=== PATIENT | female | born 1945 | race Caucasian/White ===

== ENCOUNTER 2017-04-05 19:57 | Emergency (ER) | payer MEDICARE, OTHER ==
[~2017-04-05] VITALS: Ht 162.6 cm; Wt 93.0 kg
[~2017-04-05 19:57] MED LIST: DIVALPROEX SOD250 MG PO; HUMALOG100 UNIT/2 SUB-Q; LANTUS SOL100 UNIT/1 SUB-Q; LOSARTAN-HCTZ1 EAC2 PO; METFORMIN HCL1000 MG PO; PAROXETINE HCL20 MG PO; SIMVASTATIN80 MG PO
[2017-04-05] MEDS ORDERED: NOVOLIN N100 UNIT/1 SUB-Q (23:59)
--- OUTSIDE RECORDS SUMMARY | 2017-04-06 01:00 | XMS | Clinical Summary ---
Demographics + + + | Address | [address] | | | [place] [address] | + + + | Home Phone | | + + + | Preferred Language | Unknown | + + + | Marital Status | Single | + + + | Catholic Affiliation | CAT | + + + | Race | White | + + + | Ethnic Group | Not or | + + + Author + + + | Author | [facility] | + + + | Organization | [facility] | + + + | Address | Unknown | + + + | Phone | Unavailable | + + + Support +------+ +---------+ + | Name | Relationship | Address | Phone | +------+ +---------+ + ECON | Unknown | | +------+ +---------+ + Care Team Providers + +------+ + | Care Community Outreach Worker Name | Role | Phone | + +------+ + PP | Unavailable | + +------+ + Source Comments LITA is fully live on both [facility] and [facility] Allergies + + + + + + | Active Allergy | Reactions | Severity | Noted | Comments | | | | | Date | | + + + + + + | Adhesive Tape | | | 05/08/19 | | | | | | 07 | | + + + + + + Current Medications + + +-------+---------+------+------+-------+ | Prescription | Sig. | Disp. | Refills | Star | End | Statu | | | | | | t | Date | s | | | | | | Date | | | + + +-------+---------+------+------+-------+ | ACTOS 45 MG TAB | take 1 tablet (45mg) | | | | | Activ | | | by oral route once | | | | | e | | | daily | | | | | | + + +-------+---------+------+------+-------+ | CLONAZEPAM 0.5 MG | take 1 tablet | | | | | Activ | | TAB | (0.5mg) by oral | | | | | e | | | route 3 times per | | | | | | | | day | | | | | | + + +-------+---------+------+------+-------+ | METFORMIN 1,000 MG | take 1 tablet | | | | | Activ | | TAB | (1,000mg) by oral | | | | | e | | | route 2 times per | | | | | | | | day with morning and | | | | | | | | evening meals | | | | | | + + +-------+---------+------+------+-------+ | DEPAKOTE 250 MG | take 1 tablet | | | | | Activ | | TAB | (250mg) by oral | | | | | e | | | route 2 times per | | | | | | | | day | | | | | | + + +-------+---------+------+------+-------+ | LIPITOR 40 MG TAB | take 1 tablet (40mg) | | | | | Activ | | | by oral route once | | | | | e | | | daily | | | | | | + + +-------+---------+------+------+-------+ | BENICAR HCT 40 | take 1 tablet by | | | | | Activ | | MG-12.5 MG TAB | oral route once | | | | | e | | | daily | | | | | | + + +-------+---------+------+------+-------+ | CENTRUM OR | qd | | | | | Activ | | | | | | | | e | + + +-------+---------+------+------+-------+ | VITAMIN C 1,000 MG | 2x daily | | | | | Activ | | TAB | | | | | | e | + + +-------+---------+------+------+-------+ | VITAMIN E 400 UNIT | 2x daily | | | | | Activ | | CAP | | | | | | e | + + +-------+---------+------+------+-------+ | VITAMIN B-12 500 | 2x daily | | | | | Activ | | MCG TAB | | | | | | e | + + +-------+---------+------+------+-------+ | FOLIC ACID 400 MCG | 2x daily | | | | | Activ | | TAB | | | | | | e | + + +-------+---------+------+------+-------+ | FISH OIL 1,000 | 2x daily | | | | | Activ | | MG-340 MG CAP | | | | | | e | + + +-------+---------+------+------+-------+ | | qd | | | | | Activ | | [id number] | | | | | | e | | LAG-HYALURONIC ACID | | | | | | | | 375 MG-300 MG-50 | | | | | | | | MG-2 MG CAP | | | | | | | + + +-------+---------+------+------+-------+ | CALCIUM 600 OR | 2 tabs per day | | | | | Activ | | | | | | | | e | + + +-------+---------+------+------+-------+ | IBUPROFEN 200 MG | 3 po in the a.m. | | | | | Activ | | CAP | | | | | | e | + + +-------+---------+------+------+-------+ Active Problems + + + | Problem | Noted Date | + + + | Open wound of scalp without complication | 05/24/2006 | + + + Social History + +-------+ +--------+------+ | Tobacco Use | Types | Packs/Day | Years | Date | | | | | Used | | + +-------+ +--------+------+ | Never Assessed | | | | | + +-------+ +--------+------+ + + + | Sex Assigned at | Date Recorded | | | | + + + | Not on file | | + + + Plan of Treatment + + + + + | Health Maintenance | Due Date | Last Done | Comments | + + + + + | INFLUENZA VACCINE | | | | | (FLU SHOT) | 7 | | | + + + + + Results Not on filefrom Last 3 Months"
[2017-04-06] MEDS ORDERED: CIPRO500 MG PO (07:39)
[2017-04-06] MEDS ORDERED: PROAIR RESPICL90 MCG INH (07:54)
--- NOTE | 2017-04-07 22:39 | EKG ---
[facility] [address] [facility] [place] [address] Signed Normal sinus rhythm Indeterminate axis Right bundle branch block Abnormal ECG No previous ECGs available Confirmed by ZO QUEEN MD ([id number]) on 04/07/2017 10:39:47 PM Electronically Signed By: ZO QUEEN MD 04/07/17 2239 PATIENT NAME: HOLLAND EDWARDS Electrocardiogram DATE OF : 43 PHYSICIAN: ZO QUEEN MD REPORT #: [id number] REPORT IS CONFIDENTIAL AND NOT TO BE RELEASED WITHOUT AUTHORIZATION
== END 2017-04-06 08:25 | disposition home or self-care (01) ==
LOC: ED 19:57
DX: N39.0 Urinary tract infection, site not specified (principal); J98.01 Acute bronchospasm; R53.1 Weakness; E11.9 Type 2 diabetes mellitus without complications; Z87.891 Personal history of nicotine dependence; Z88.8 Allergy status to other drugs, medicaments and biological substances; Z79.899 Other long term (current) drug therapy; Z79.84 Long term (current) use of oral hypoglycemic drugs
CPT/HCPCS: 71046; 71260; 80053; 81001; 83605; 83880; 84484; 85025; 87040; 87502; 93005; 93010; 96365; 96375; 99284; J0295; J1100; J7040; Q9967

== ENCOUNTER 2020-07-16 20:37 | Observation (INO) | payer MEDICARE, OTHER ==
[~2020-07-16] VITALS: Ht 162.6 cm; Wt 97.2 kg
[~2020-07-16 20:37] MED LIST changes: +ASPIRIN81 MG PO; +CIPRO500 MG PO; +ESCITALOPRAM OX10 MG PO; +FREESTYLE TEST1 EACH MISC; +HUMALOG100 UNITS/ SUB-Q; +INSULIN SYRING1 EA47 MISC; +METFORMIN HCL1000 M1 PO; +NOVOLIN N100 UNIT/1 SUB-Q; +POTASSIUM GLUCO90 MG PO; +PROAIR RESPICL90 MCG INH; +SIMVASTATIN40 MG PO; +SYNTHROID88 MCG PO; +TURMERIC500 M2 PO; +VITAMIN B-121000 MCG PO; +VITAMIN C500 M1 PO; +VITAMIN D325 MCG PO
--- NOTE | 2020-07-16 23:30 | NUR ---
PT ARRIVED TO [facility] AT 2302 VIA STRETCHER ACCOMPANIED BY HER DAUGHTER. VS TAKEN AND ENTERED. PT DENIES ANY SX AT THIS TIME. PT IS ORIENTED TO THE ROOM AND CALL LIGHT. COMPLETED ADMISSION HX SHE DENIES NEEDS AT THIS TIME. CALL LIGHT IS CLOSE. DAUGHTER IS IN THE ROOM.
--- NOTE | 2020-07-17 00:30 | NUR ---
ASSESSMENT COMPLETE, NO SCHEDULED MEDS AT THIS TIME. pt A/OX4, VSS. CPOX IN PLACE ALONG WITH TELE#5, SINUS RHYTHM, HR 70'S. pt DENIES CHEST PAIN AND SOB. PUPILS ROUND AND REACTIVE TO LIGHT, DENIES VISION CHANGES. EQUAL STRENGTH NOTED TO BILATERAL UPPER EXTREMITIES AND BILATERAL LOWER EXTREMITIES, NO DRIFT NOTED IN EXTREMITIES X4. SPEECH CLEAR, TOLERATING SANDWICH BOX AT THIS TIME. DENIES NAUSEA, REPORTS THAT SHE CAN FEEL DIZZY/SWEATY WHEN BS IS LOW, pt INSTRUCTED TO CALL SCALLOP CUTTER MACHINE IF SHE HAS CONCERNS REGARDING BS, pt VERBALIZED UNDERSTANDING. pt UP SBA TO VOID, RETURNED TO BED. MRI SCREENING FORM ASLO COMPLETED AT THIS TIME. NO FURTHER NEEDS, DAUGHTER REMAINS IN ROOM. CALL LIGHT IN REACH.
--- NOTE | 2020-07-17 04:41 | NUR ---
ASSESSMENT COMPLETE, VSS. pt A/OX4. NO CHANGES FROM PREVIOUS ASSESSMENT, WILL CONT. TO MONITOR. pt UP TO VOID SBA AND RETURNED TO BED. NO FURTHER NEEDS, CALL LIGHT IN REACH.
--- NOTE | 2020-07-17 05:44 | NUR ---
pt ARRIVED TO THE FLOOR THIS SHIFT D/T POSSIBLE CVA. NO DEFICITS NOTED AT THIS TIME, pt A/OX4 AND CALLS APPROPRIATELY. VSS, TELE#[address], NSR. 05/13 REPORTED HEADACHE RESOLVED W/O MEDICAL INTERVENTION. REGULAR DIET, TOLERATING WELL. NO NAUSEA REPORTED. IV SITE WNL, FIELD START. SALINE LOCKED. MRI SCREENING FORM COMPLETE.
--- NOTE | 2020-07-17 08:37 | NUR ---
PATIENT SITTING AT SIE OF BED FOR BREAKFAST. FACE AND HANDS WASHED, FRESH ICE WATER PROVIDED.
--- NOTE | 2020-07-17 09:00 | NUR ---
REPORT RECEIVED FROM NIGHT RN AND PT. CARE RESUMED. PT. IN THE CHAIR, ALERT, ORIENTED AND PLEASANT. SHE REPORTS A MILD HEADACHE THAT IS TOLERABLE AND STATES SHE NORMALLY TAKES ENTERIC COATED ASPIRIN AT HOME FOR HEADACHE. PT. EDUCATED ON TIA AND STROKE PREVENTION. PT. RECEPTIVE AND ASKED GOOD QUESTIONS. NEURO ASSESSMENT SHOWS NO DEFICITS. LUNGS CLEAR. IV SITE WNL AND FLUSHES. DISCUSSED POC. PT LEFT RESTING IN CHAIR WITH CALL LIGHT IN REACH.
[2020-07-17] MEDS ORDERED: ADULT ASPIRIN R81 MG PO (11:01)
[2020-07-17] MEDS ORDERED: FREESTYLE TEST1 EACH MISC (11:02)
[2020-07-17] MEDS ORDERED: ESCITALOPRAM OX20 MG PO (11:03)
[2020-07-17] MEDS ORDERED: NOVOLIN R100 UNIT/1 INJ (11:04)
[2020-07-17] MEDS ORDERED: MELATONIN10 M2 PO (11:08)
--- NOTE | 2020-07-17 11:08 | NUR ---
MED REC COMPLETE
--- NOTE | 2020-07-17 12:30 | NUR ---
PATIENT ASLEEP IN THE CHAIR. AWAKENED EASILY AND ORIENTED. NEURO. ASSESSMENT SHOWS NO DEFICITS. LUNGS CLEAR AND IV SITE WNL. IMAGING ARRIVED TO TAKE PT. TO MRI.
--- NOTE | 2020-07-17 13:18 | EKG ---
[facility] [address] [facility] [place] [address] Signed Sinus rhythm with occasional premature ventricular complexes Left axis deviation Right bundle branch block Abnormal ECG When compared with ECG of 30-DEC-2019 18:53, premature ventricular complexes are now present Questionable change in QRS axis Confirmed by CULLEN BANKS DO ([id number]) on 07/17/2020 1:18:39 PM Electronically Signed By: CULLEN BANKS DO 07/17/20 1318 PATIENT NAME: HOLLAND EDWARDS JULIET Electrocardiogram DATE OF : 43 PHYSICIAN: CULLEN BANKS DO REPORT #: [id number] REPORT IS CONFIDENTIAL AND NOT TO BE RELEASED WITHOUT AUTHORIZATION
--- NOTE | 2020-07-17 14:32 | NUR ---
PT LIVES IN A ONE STORY HOUSE WITH ONE STEP WITH HER EX- WHO HAS DEMENTIA. SHE IS HIS PRIMARY CAREGIVER. THEY USE [employer] FOR MEALS ON WHEELS. IT WAS DISSCUSSED WITH PT THAT SHE LOOKS INTO GETTING A CAREGIVER THROUGH [employer] FOR HER EX-, AND GETTING A LIFEALERT FOR THE PT.
--- NOTE | 2020-07-17 15:42 | NUR ---
PATIENT AWAKE IN CHAIR, DAUGHTER IN CHAIR. VITALS AND I&OS CHARTED. GARBAGE EMPTIED. CALL LIGHT IN REACH, NO OTHER NEEDS AT THIS TIME
--- NOTE | 2020-07-17 18:19 | NUR ---
PT. HERE FOR CHF EXACERBATION. PER DANIEL, CANNOT RETURN TO [facility] EARLIER THAN MONDAY DUE TO STAFFING. O2 SAT HAS STAYED ABOVE 90% ON R.A. FOR THE SHIFT. UO IS QS FOR THE SHIFT AND YELLOW WITH SEDIMENT. IV FLUSHES WELL. PT. VERY WEAK AND WAS NOT ABLE TO PIVOT TRANSFER TODAY. +2 PITTING EDEMA STILL PRESENT BLE. PT. CONFUSED AND [place] AT BASELINE. SWALLOW STUDY COMPLETED. SHE IS ON A PUREED AND THICKENED LIQUID DIET. Q2H TURNS. REDNESS IN DANGELO AND LABIA AREA. BARRIER CREAM APPLIED AND ATTENDS IN PLACE.
--- NOTE | 2020-07-17 18:33 | NUR ---
PT. ADMITTED FOR TIA OBSERVATION. AWAITING MRI RESULTS TO DETERMINE DISCHARGE. ACCUCHECKS AND INSULIN NOW ORDERED. VITALS STABLE AND NO NEURO DEFICITS NOTED. PT. INDEPENDENT IN THE ROOM AND ON TELE 5.
--- NOTE | 2020-07-17 19:10 | NUR ---
SHIFT REPORT RECEIVED FROM DAYSHIFT RN RAÚL AT BEDSIDE. pt AWAKE AND RESTING IN CHAIR, DAUGHTER ALSO IN ROOM. TELE#[address], NSR, HR 70'S. NO NEEDS AT THIS TIME, CALL LIGHT IN REACH.
--- NOTE | 2020-07-17 22:25 | NUR ---
ASSESSMENT COMPLETE, VSS. TELE #[address], SINUS RHYTHM, HR 70'S. ACCUCHECK RESULT OF 193, INSULIN LISPRO SS AND SCHEDULED INSULIN NPH GIVEN, SEE EMAR. pt INSTRUCTED TO CALL IF SHE EXPERIENCES S/SX OF LOW BS, pt VERBALIZED UNDERSTANDING. NEURO ASSESSMENT WNL, EQUAL STRENGTH TO QING AND FELISA. pt INDEPENDENT IN ROOM, DAUGHTER ALSO IN ROOM. NO FURTHER NEEDS, CALL LIGHT IN REACH.
--- NOTE | 2020-07-18 00:33 | NUR ---
TELE#[address], SINUS RHYTHM, HR 60'S. NO DISTRESS NOTED. EYES CLOSED, RR EVEN AND UNLABORED, CALL LIGHT IN REACH.
--- NOTE | 2020-07-18 01:21 | NUR ---
IN ROOM TO REPLACE TELE BATTERY, pt AWOKE EASILY TO VOICE. NO NEEDS VERBALIZED AT THIS TIME, DAUGHTER REMAINS IN ROOM. CALL LIGHT IN REACH.
--- NOTE | 2020-07-18 03:23 | NUR ---
HAYLIE#[address], SINUS RHYTHM, HR 65. ACCUCHECK RESULT IN 130'S. pt AWOKE TO VOICE. DENIED PAIN AND NEEDS. INDEPENDENT IN ROOM, DAUGHTER ALSO IN ROOM. HAT EMPTIED, URINE LIGHT YELLOW IN COLOR. NO NEEDS VERBALIZED, CALL LIGHT IN REACH.
--- NOTE | 2020-07-18 05:31 | NUR ---
VSS AND I&O'S COMPLETE. FRESH WATER PROVIDED, NO FURTHER NEEDS, CALL LIGHT IN REACH.
[2020-07-18] MEDS ORDERED: CLOPIDOGREL75 MG PO ×2 (08:51→18:29)
--- NOTE | 2020-07-18 09:52 | NUR ---
PT IN RM WITH PHARMACY RENAE AND THIS RN TO DISCUSS DC MEDS, SIDE EFFECTS, NEW MEDS EDUCATION GIVEN, VERBAL AND WRITTEN. DC INST. TO PT WELL.
== END 2020-07-18 10:00 | disposition home or self-care (01) ==
LOC: ED 20:37 → MS 20:39
PROVIDERS: ADMIT Student in an Organized Health Care Education/Training Program; ATTEND Student in an Organized Health Care Education/Training Program
DX: G45.9 Transient cerebral ischemic attack, unspecified (principal); I10 Essential (primary) hypertension; E78.5 Hyperlipidemia, unspecified; E11.9 Type 2 diabetes mellitus without complications; E03.9 Hypothyroidism, unspecified; Z79.82 Long term (current) use of aspirin; Z20.822 Contact with and (suspected) exposure to COVID-19
CPT/HCPCS: 70450; 70496; 70498; 70551; 71045; 80053; 85025; 85610; 85730; 93005; 93010; C9803; J1815; Q9967; U0003

== ENCOUNTER 2020-12-27 18:05 | Emergency (ER) | payer MEDICARE, OTHER ==
[~2020-12-27] VITALS: Ht 162.6 cm; Wt 97.1 kg
[~2020-12-27 18:05] MED LIST changes: +ADULT ASPIRIN R81 MG PO; +CLOPIDOGREL75 MG PO; +ESCITALOPRAM OX20 MG PO; +MELATONIN10 M2 PO; +NOVOLIN R100 UNIT/1 INJ
[2020-12-27] MEDS ORDERED: PLAVIX75 MG PO (20:09)
--- NOTE | 2020-12-28 20:09 | EKG ---
[facility] [address] [facility] [place], [place] [address] Signed Sinus rhythm with sinus arrhythmia with 1st degree AV block with occasional premature ventricular complexes Left axis deviation Right bundle branch block Inferior infarct , age undetermined Abnormal ECG When compared with ECG of 16-JUL-2020 20:59, No significant change was found Confirmed by CULLEN BANKS DO ([id number]) on 12/28/2020 8:09:17 PM Electronically Signed By: CULLEN BANKS DO 12/28/202008 PATIENT NAME: HOLLAND EDWARDS JULIET Electrocardiogram DATE OF : 43 PHYSICIAN: CULLEN BANKS DO REPORT #: [id number] REPORT IS CONFIDENTIAL AND NOT TO BE RELEASED WITHOUT AUTHORIZATION
== END 2020-12-27 20:53 | disposition home or self-care (01) ==
LOC: ED 18:05
DX: G45.9 Transient cerebral ischemic attack, unspecified (principal); E03.9 Hypothyroidism, unspecified; E11.9 Type 2 diabetes mellitus without complications; Z87.891 Personal history of nicotine dependence; Z79.82 Long term (current) use of aspirin; Z79.4 Long term (current) use of insulin; Z88.7 Allergy status to serum and vaccine; Z79.899 Other long term (current) drug therapy
CPT/HCPCS: 70450; 70496; 70498; 70551; 71045; 80053; 85025; 85610; 85730; 93005; 93010; 96374; 99285-25

== ENCOUNTER 2020-12-28 06:50 | Emergency (ER) | payer MEDICARE, OTHER ==
[~2020-12-28] VITALS: Ht 162.6 cm; Wt 97.1 kg
[~2020-12-28 06:50] MED LIST changes: +PLAVIX75 MG PO
--- OUTSIDE RECORDS SUMMARY | 2020-12-28 07:00 | XMS ---
PreManage Notification: HOLLAND EDWARDS Security Assistant Account Manager Events No recent Security Events currently on file CRITERIA MET - [facility] - 2 Visits in 30 Days CARE PROVIDERS There are no care providers on record at this time. Mandy has no Care Guidelines for this patient. [facility] T[facility] NOTE: Visits indicate total known visits. ED/C VISIT TRACKING (12 MO.) 12/28/2020 06:51 [facility] TYPE: Emergency COMPLAINT: - POSS STROKE 12/27/2020 18:06 [facility] TYPE: Emergency COMPLAINT: - POSSIBLE STROKE 07/16/2020 20:38 [facility] TYPE: Emergency COMPLAINT: - STROKE SYMPTOMS 12/30/2019 17:33 [facility] TYPE: Emergency COMPLAINT: - STROKE SYMPTOMS INPATIENT VISIT TRACKING (12 MO.) 07/16/2020 20:39 [facility] TYPE: Observation COMPLAINT: - TIA DIAGNOSES: - Hyperlipidemia, unspecified - Essential (primary) hypertension - Transient cerebral ischemic attack, unspecified - nursing home (current) use of aspirin - Hypothyroidism, unspecified - Type 2 diabetes mellitus without complications 12/30/2019 17:34 [facility] [place] TYPE: Observation COMPLAINT: - CVA DIAGNOSES: - Unspecified mood [affective] disorder - Type 2 diabetes mellitus with hyperglycemia - 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
== END 2020-12-28 10:26 | disposition home or self-care (01) ==
LOC: ED 06:50
DX: Z86.73 Personal history of transient ischemic attack (TIA), and cerebral infarction without residual deficits (principal); E11.9 Type 2 diabetes mellitus without complications; E03.9 Hypothyroidism, unspecified; Z87.891 Personal history of nicotine dependence; Z88.7 Allergy status to serum and vaccine; Z79.899 Other long term (current) drug therapy
CPT/HCPCS: 70551; 99282

== ENCOUNTER 2021-07-04 16:57 | Emergency (ER) | payer MEDICARE, OTHER ==
[~2021-07-04] VITALS: Ht 162.6 cm; Wt 97.1 kg
[2021-07-04] MEDS ORDERED: JANUVIA100 MG PO (17:21)
[2021-07-04] MEDS ORDERED: CHROMIUM PIC1000 MCG PO (17:21)
[2021-07-04] MEDS ORDERED: NIACIN ER500 MG PO (17:22)
--- NOTE | 2021-07-05 07:17 | EKG ---
[facility] [address] [facility] [place] [address] Signed Sinus rhythm with frequent premature ventricular complexes Left axis deviation Right bundle branch block Abnormal ECG When compared with ECG of 27-DEC-2020 18:30, No significant change was found Confirmed by JONI GONSALES MD ([id number]) on 07/05/2021 7:17:09 AM Electronically Signed By: JONI GONSALES MD 07/05/21 0717 PATIENT NAME: HOLLAND EDWARDS Electrocardiogram DATE OF : 43 PHYSICIAN: JONI GONSALES MD REPORT #: [id number] REPORT IS CONFIDENTIAL AND NOT TO BE RELEASED WITHOUT AUTHORIZATION
== END 2021-07-04 19:15 | disposition home or self-care (01) ==
LOC: ED 16:57
DX: E11.649 Type 2 diabetes mellitus with hypoglycemia without coma (principal); Z86.73 Personal history of transient ischemic attack (TIA), and cerebral infarction without residual deficits; E03.9 Hypothyroidism, unspecified; Z87.891 Personal history of nicotine dependence; Z88.7 Allergy status to serum and vaccine; Z79.899 Other long term (current) drug therapy; Z79.84 Long term (current) use of oral hypoglycemic drugs; Z79.82 Long term (current) use of aspirin; Z79.4 Long term (current) use of insulin
CPT/HCPCS: 36415; 80053; 81001; 84484; 85025; 93005; 93010; 99285-25

== ENCOUNTER 2021-11-13 16:38 | Inpatient (IN) | payer MEDICARE ==
[~2021-11-13] VITALS: Ht 162.6 cm; Wt 83.1 kg
[~2021-11-13 16:38] MED LIST changes: -ADULT ASPIRIN R81 MG PO; +ASPIRIN EC325 MG PO; +CHROMIUM PIC1000 MCG PO; +JANUVIA100 MG PO; +MACROBID 100 M100 MG PO; +NIACIN ER500 MG PO
[2021-11-13] MEDS ORDERED: LOSARTAN-HCTZ1 EACH PO (17:23)
[2021-11-13] MEDS ORDERED: LEVOTHYROXINE88 MCG PO (17:23)
[2021-11-13] MEDS ORDERED: JANUVIA100 MG PO (17:24)
--- NOTE | 2021-11-13 21:34 | NUR ---
PATIENT ARRIVED ABOUT 2029 WITH HOUSE FLOAT. PATIENT ALERT BUT ORIENTED TO SELF ONLY. PATIENT UNABLE TO FOLLOW INSTRUCTIONS. MOVED PATIENT 2PA TO THE BED. PATIENT IS VERY ANXIOUS AND COMBATIVE WITH ALL CARES, ESPECIALLY THE BP CUFF. PATIENT REORIENTED AND VERBALLY COMFORTED CONTINUOUSLY BY STAFF. PATIENT UP TO THE BSC. PATIENT IS IMPULSIVE AND NOT FOLLOWING SAFETY INSTRUCTIONS. APPEARS STEADY ON HER FEET. VOIDED LARGE DILUTE AMOUNT. RETURNED TO BED. PASSED BEDSIDE SWALLOW EVAL. TOOK PO MEDS WITHOUT CONCERN. OTHER SCHEDULED MEDS PROVIDED PER ORDER. PATIENT REQUIRES CLOSE MONITORING TO PROTECT IV SITES AND FOR SAFETY. BED ALARM ALSO ACTIVE. VS STABLE.
--- NOTE | 2021-11-14 00:10 | NUR ---
PATIENT RESTLESS IN BED. BED ALARM ALERTED STAFF. PATIENT'S DAUGHTER AT BEDSIDE. PATIENT ASSISTED TO STRAIGHTEN OUT IN BED AND PLACE GOWN BACK ON. CARDIAC LEADS REPLACED. PATIENT DENIED NEED TO VOID. BED ALARM ACTIVE. CALL LIGHT IN REACH. FAMILY DENIED NEEDS.
--- NOTE | 2021-11-14 02:31 | NUR ---
BED ALARMING. pt ATTEMPTING TO GET UP. pt CONTINUED TO REPEAT "STOP! GOD DAMN IT!" WHEN BEING ASSISTED. pt MOANED AND APPEARED WORRIED WHEN AMBULATED, STEADY ON FEET, REQUIRED PHYSICAL AND VERBAL CUES TO TRANSFER FROM BED TO BSC. LARGE VOID. pt YELLED "STOP" WHEN ASSISTED WITH WIPING AND WHEN ATTEMPTED TO PULL UP BRIEF. pt REQUIRED COAXING AND PHYSICAL CUES TO MOVE SELF UP IN BED. pt ASKED FOR SOMETHING, UNABLE TO UNDERSTAND WHAT. WHEN ASKED IF SHE NEEDED WATER pt REPLIED "YES I NEED A DRINK OF WATER" pt ABLE TO DRINK WATER WITHOUT ASSISTANCE. pt THEN LAID DOWN IN BED. REATTACHED LEADS AND COVERED WITH BLANKET. NO FURTHER REQUESTS AT THIS TIME. BED ALARM ON. DAUGHTER AT BEDSIDE.
--- NOTE | 2021-11-14 04:45 | NUR ---
PATIENT BP CUFF AND CARDIAC LEADS REPLACED. VS STABLE. PATIENT CONTINUES TO BE ALTERED. FAMILY AT BEDSIDE. VS STABLE.
--- NOTE | 2021-11-14 06:45 | NUR ---
PATIENT RESTING IN BED. REQUEST COFFEE WITH CREAMER. PATIENT HAS A HAPPY AFFECT AND IS ORIENTED TO PERSON AND SURROUNDINGS.
--- NOTE | 2021-11-14 07:14 | EKG ---
[facility] [address] [facility] [place] [address] Signed Sinus rhythm with 1st degree AV block with occasional premature ventricular complexes Right bundle branch block Abnormal ECG When compared with ECG of 04-JUL-2021 17:06, Questionable change in QRS axis Confirmed by JONI GONSALES MD ([id number]) on 11/14/2021 7:14:40 AM Electronically Signed By: JONI GONSALES MD 11/14/2114 PATIENT NAME: HOLLAND EDWARDS Electrocardiogram DATE OF : 43 PHYSICIAN: JONI GONSALES MD REPORT #: [id number] REPORT IS CONFIDENTIAL AND NOT TO BE RELEASED WITHOUT AUTHORIZATION
--- NOTE | 2021-11-14 07:24 | NUR ---
UPDATE PROVIDED TO
--- NOTE | 2021-11-14 07:30 | NUR ---
PT RESTING IN BED, EYES CLOSED, RESP EVEN AND UNLABORED. BED ALRM ON, SIDE RAILS UP. DAUGHTER ALSO IN ROOM APPEARS TO BE SLEEPING.
--- NOTE | 2021-11-14 08:15 | NUR ---
BROUGHT BREAKFAST IN TO DAUGHTER, PT AWAKENS AND SEEMS CHEERFUL AND HAS NO COMPLAINTS. DAUGHTER STATES HER MOTHER IS LESS CONFUSED THIS MORNING AND SEEMS TO BE ALMOST BACK TO HER BASELINE BUT NOT QUITE. PT DENIES PAIN OR ANY OTHER COMPLIANTS, IS COOPERATIVE AND FOLLOWING DIRECTIONS. ASSISTED WITH SITTING UP FOR BREAKFAST.
--- NOTE | 2021-11-14 10:57 | NUR ---
PT HAS JUST FINISHED WORKIING WITH PHYSICAL THERAPY AND IS NOW BACK SITTING UP IN CHAIR. WAS ABLE TO WALK UP AND DOWN THE CCU HALLWAY, STEADY ON FEET AND TOLERATED WELL, HR STEADY IN 80'S. CALL LIGHT IN REACH.
--- NOTE | 2021-11-14 11:35 | NUR ---
PT ROUNDING. PT RESTING IN BED WITH EYES CLOSED. RESPIRATIONS EVEN AND UNLABORED. PT APPEARS TO BE SLEEPING. CALL LIGHT IN REACH. BED ALARM ACTIVE. PT'S DAUGHER SLEEPING ON COUCH AT BEDSIDE.
--- NOTE | 2021-11-14 12:30 | NUR ---
REPORT GIVEN TO IRENA VITALE.
--- NOTE | 2021-11-14 13:12 | NUR ---
PATIENT ARRIVED TO ROOM 119 VIA CHAIR. VITALS ARE STABLE. PATIENT IS UP TO CHAIR, LUNCH IS IN ROOM. BG 212 AND CCU RNMIN COVERED PATIENT WITH 3 UNITS PER SLIDING SCALE. CALL LIGHT IS WITHIN REACH, PATIENT DEMONSTRATED WHICH BUTTON TO PUSH FOR THE NURSE. PATIENT ENDORSES THAT SHE IS ALWAY FORGETFUL, HAS NO MEMORY OF PREVIOUS DAY. PATIENT IS CURRENTLY ORIENTED X3.
--- NOTE | 2021-11-14 13:23 | NUR ---
PT TRANSFERRED OVER TO MED SURG ROOM 119, LAKSHMI RN IN ROOM TO
--- NOTE | 2021-11-14 13:45 | NUR ---
PT SITTING IN CHIAR. PT ON ROOM AIR, LUNG SOUNDS CLEAR, DENIES SOB. PT ORIENTED, DOES NOT REMEMBER YESTERDAY, LOOSES TRAIN OF THOUGHT OCCASIONALLY. PT DENIES PAIN. IV SALINE LOCKED. PT WITHOUT EDEMA, CMS INTACT. PT DENIES NEEDS AT THIS TIME.
--- NOTE | 2021-11-14 15:58 | NUR ---
MED REC COMPLETE
--- NOTE | 2021-11-14 17:40 | NUR ---
PT GIVEN 3 UNITS OF SS HUMALOG FOR BLOOD GLUCOSE 208. PT SELF ADMINISTERED INSULIN TO LOWER ABD. PT VOIDED AND NOW RESTING IN BED. PT DENIES OTHER NEEDS AT THIS TIME.
--- NOTE | 2021-11-14 18:12 | NUR ---
PATIENT IN BED RESTING AT THIS TIME. VITALS AND I&O'S CHARTED. CALL LIGHT IN REACH. NO FURTHER NEEDS AT THIS TIME.
--- NOTE | 2021-11-14 19:10 | NUR ---
BEDSIDE REPORT RECEIVED FROM OFFGOING RNIRENA. PT DENIES NEEDS AT THIS TIME. CALL LIGHT IN REACH.
--- NOTE | 2021-11-14 20:03 | NUR ---
PT ASSESSMENT COMPLETE. PT RESTING IN BED WITH EYES CLOSED. WAKES EASILY WHEN VULCANIZER ENTERS THE ROOM. PT DENIES PAIN, NAUSEA, OR SOB. PT DISORIENTED TO EVENT. OTHERWISE A&O. TELE #[address], SR, HR 60'S. IV FLUSHED WITH 10 ML NS, WNL, PATENT, SL. EDUCATION PROVIDED REGARDING IV USE AND CARE, PT STATES UNDERSTANDING. PT DENIES FURTHER NEEDS AT THIS TIME. CALL LIGHT IN REACH. BED ALARM ACTIVE.
--- NOTE | 2021-11-14 20:22 | NUR ---
PATIENTS BED ALARM ALERETED STAFF. PATIENT ASSISTED TO THE RESTROOM A SBA. PATIENT ABLE TO VOID. PATIENT IS IN RECLINER RESTING. DAUGHTER PRESENT IN THE ROOM. CALL LIGHT IN REACH. ICE PROVIDED. NO FURTHER NEEDS NOTED. CALL LIGHT IN REACH.
--- NOTE | 2021-11-14 21:30 | NUR ---
SCHEDULED MEDICATION ADMINISTRATION. PT RESTING IN BED WATCHING TV AND VISITING WITH HER DAUGHTER. PT LAUGHING AND JOKING WITH ADVANCED PRACTICE PSYCHIATRIC NURSE AND HER DAUGHTER. DENIES NEEDS AT THIS TIME. CALL LIGHT IN REACH.
--- NOTE | 2021-11-14 23:30 | NUR ---
PT ROUNDING. PT RESTINGIN BED WITH EYES CLOSED. RESPIRATIONS EVEN AND UNALBORED. PT APPEARS TO BE SLEEPING. DOES NOT WAKE WHILE CHIEF RISK OFFICER AT DOORWAY. PT'S DAUGHTER RESTING ON COUCH. CALL LIGHTIN REACH.
--- NOTE | 2021-11-15 01:59 | NUR ---
PT ROUNDING. PT RESTING IN BED WITH EYES CLOSED, LAYING ON R SIDE. RESPIRATIONS EVEN AND UNLABORED. PT APPEARS TO BE SLEEPING. DOES NOT WAKE WHILE SILK WASHING MACHINE OPERATOR AT DOORWAY. PT'S DAUGHTER SLEEPING ON COUCH. CALL LIGHT IN REACH. BED ALARM ACTIVE.
--- NOTE | 2021-11-15 02:34 | NUR ---
PT ASSESSMENT COMPLETE. PT UP TO BATHROOM AND BACK TO BED. TOLERATED WELL. PT STEADY ON HER FEET. PT DENIES PAIN, NAUSEA, OR SOB. PT FORGETFUL, DISORIENTED TO EVENT. OTHERWISE A&O. PT'S DAUGHTER PRESENT IN ROOM, AWAKE. NEEDS DENIED BY PT AND HER DAUGTHER. CALL LIGHT IN REACH.
--- NOTE | 2021-11-15 04:52 | NUR ---
PT ROUNDING. PT RESTING IN BED ON HER BACK. EYES CLOSED. PT APPEARS TO BE SLEEPING. RESPIRATIONS EVEN AND UNLABORED. PT DOES NOT WAKE WHILE MILK OF LIME SLAKER AT DOORWAY. PT'S DAUGHTER SNORING AUDIBLY FROM COUCH. NEEDS DENIED AT THIS TIME. CALL LIGHT IN REACH.
--- NOTE | 2021-11-15 06:26 | NUR ---
GLASS GLAZIER TO ROOM FOR SCHEDULED MEDCIATION ADMINISTRATION. PT RESTING IN BED WITH EYES CLOSED. WAKES EASILY TO VOICE. VS OBTAINED, WNL. PT FALLS BACK TO SLEEP EASIL. PT'S DAUGHTER RESTING ON COUCH, SNORING AUDIBLY. CALL LIGHT IN REACH.
--- NOTE | 2021-11-15 07:30 | NUR ---
THIS RN RECEIVED SHIFT REPORT FROM WINIFRED SKINNER. PATIENT RESTING QUIETLY IN BED ON HER RIGHT SIDE, EYES CLOSED, RESPIRATIONS ARE REGULAR AND EVEN, CALL LIGHT IS IN REACH, AND PATIENT HAS NO NURSING CARE NEEDS AT THIS TIME.
--- NOTE | 2021-11-15 08:00 | NUR ---
PT RESTING IN BED. PT DECLINED WARM WASH CLOTH. PT DECLINED GETTING UP IN CHAIR. PT DECLINED SITTING UP IN BED FOR BREAKFAST WELL. NO FURTHER NEEDS AT THIS TIME. CALL LIGHT WITHIN REACH.
--- NOTE | 2021-11-15 09:00 | NUR ---
THIS RN IN TO SEE PATIENT AND SHE IS INDEPENDENT AND AMBULATORY WITHOUT DIFFICULTY IN THE ROOM. AM MEDS GIVEN AND PATIENT DENIES NAUSEA OR PAIN. PATIENT AAOx4 AND HAS NO NOTED APHASIA OR PHYSICAL DEFICITS AT THIS TIME. CALL LIGHT IS IN REACH AND VS ARE STABLE. PATIENT DENIES ANY OTHER CARE NEEDS AT THIS TIME. PATIENT'S DAUGHTER IS ASLEEP ON THE COUCH.
[2021-11-15] MEDS ORDERED: CLOPIDOGREL75 MG PO (10:22)
[2021-11-15] MEDS ORDERED: BAYER CHEWABLE81 MG PO (10:23)
[2021-11-15] MEDS ORDERED: HYZAAR 50-12.51 EACH PO (10:55)
--- NOTE | 2021-11-15 11:10 | NUR ---
PATIENT DC'D TO HOME VIA PRIVATE CAR DRIVEN BY PATIENT'S DAUGHTER. NIH SCORE ON DC WAS 0. PATIENT BACK TO BASELINE PER DAUGHTER AND PATIENT. DC INSTRUCTIONS AND F/U INSTRUCTIONS GIVEN IN VERBAL AND WRITTEN FORM AND DAUGHTER AND PATIENT VERBALIZED UNDERSTANDING TO ALL. IV DC'D INTACT. HAKAN GOODWIN TAKING PATIENT IN WHEELCHAIR TO FRONT LOBBY FOR DC.
== END 2021-11-15 11:10 | disposition home or self-care (01) | DRG 65 ==
LOC: ED 16:38 → MS 19:36 → CCU 19:36 → MS 11-14 13:15
PROVIDERS: ADMIT Internal Medicine; ATTEND Internal Medicine
DX: I63.9 Cerebral infarction, unspecified (principal); G81.91 Hemiplegia, unspecified affecting right dominant side; R47.01 Aphasia; E11.9 Type 2 diabetes mellitus without complications; E03.9 Hypothyroidism, unspecified; I10 Essential (primary) hypertension; Z88.7 Allergy status to serum and vaccine; Z87.891 Personal history of nicotine dependence; Z90.710 Acquired absence of both cervix and uterus; Z90.49 Acquired absence of other specified parts of digestive tract; Z79.899 Other long term (current) drug therapy; Z79.84 Long term (current) use of oral hypoglycemic drugs; I49.3 Ventricular premature depolarization; Z20.822 Contact with and (suspected) exposure to COVID-19
CPT/HCPCS: 36415; 70450; 70496; 70498; 71045; 80048; 80053; 80061; 81001; 83735; 85025; 85610; 85730; 87502; 93005; 93010; 97161; C9113; C9803; J1650; J1815; J2405; Q9967; U0003

== ENCOUNTER 2022-02-01 16:45 | Emergency (ER) | payer MEDICARE ==
[~2022-02-01] VITALS: Ht 162.6 cm; Wt 83.0 kg
[~2022-02-01 16:45] MED LIST changes: +BAYER CHEWABLE81 MG PO; +HYZAAR 50-12.51 EACH PO; +LEVOTHYROXINE88 MCG PO; +LOSARTAN-HCTZ1 EACH PO
[2022-02-01] MEDS ORDERED: PLAVIX75 MG PO (18:37)
== END 2022-02-01 19:15 | disposition home or self-care (01) ==
LOC: ED 16:45
DX: U07.1 COVID-19 (principal); G45.9 Transient cerebral ischemic attack, unspecified; E11.9 Type 2 diabetes mellitus without complications; E03.9 Hypothyroidism, unspecified; I10 Essential (primary) hypertension; Z88.7 Allergy status to serum and vaccine; Z79.899 Other long term (current) drug therapy; Z79.82 Long term (current) use of aspirin; Z79.84 Long term (current) use of oral hypoglycemic drugs
CPT/HCPCS: 36415; 70450; 80053; 85025; 87502; 99285-25; C9803; U0003

== ENCOUNTER 2022-02-01 19:22 | Inpatient (IN) | payer MEDICARE ==
[~2022-02-01] VITALS: Ht 162.6 cm; Wt 82.2 kg
--- NOTE | ~2022-02-01 | EKG ---
[facility] [address] [place], [place] [address] Draft EKG completed, results pending confirmation PATIENT NAME: HOLLAND EDWARDS Electrocardiogram DATE OF : 43 PHYSICIAN: PRELIMINARY REPORT #: [id number] REPORT IS CONFIDENTIAL AND NOT TO BE RELEASED WITHOUT AUTHORIZATION
--- OUTSIDE RECORDS SUMMARY | 2022-02-01 19:30 | XMS ---
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 Hans VISIT COUNT (12 MO[address] [facility] TOTAL 5 NOTE: Visits indicate total known visits. ED/C VISIT TRACKING (12 MO.) 02/01/2022 19:23 [facility] [place] TYPE: Emergency COMPLAINT: - POSS STROKE 02/01/2022 16:46 [facility] TYPE: Emergency COMPLAINT: - CONFUSION 11/13/2021 16:38 [facility] [place] TYPE: Emergency COMPLAINT: - BLOOD SUGAR PROBLEM 08/05/2021 19:57 [facility] TYPE: Emergency COMPLAINT: - BLOOD SUGAR PROBLEM DIAGNOSES: - Type 1 diabetes mellitus with hypoglycemia without coma - Other detention (current) drug therapy - Allergy status to serum and vaccine - Hypothyroidism, unspecified - termite helper (current) use of aspirin - USP (current) use of oral hypoglycemic drugs - Personal history of nicotine dependence - Personal history of transient ischemic attack (TIA), and cerebral infarction without residual deficits - Hypoglycemia, unspecified - Essential (primary) hypertension - Urinary tract infection, site not specified 07/04/2021 16:57 [facility] [place] TYPE: Emergency COMPLAINT: - POSSIBLE STROKE DIAGNOSES: - Type 2 diabetes mellitus with hypoglycemia without coma - USP (current) use of aspirin - Other detention (current) drug therapy - termite helper (current) use of oral hypoglycemic drugs - Allergy status to serum and vaccine - Personal history of nicotine dependence - Hypothyroidism, unspecified - Personal history of transient ischemic attack (TIA), and cerebral infarction without residual deficits - Disorientation, unspecified - USP (current) use of insulin INPATIENT VISIT TRACKING (12 MO.) 11/13/2021 19:36 [facility] [place] TYPE: Medical Surgical COMPLAINT: - ALTERED MENTAL STATUS,HX TIAS, POSSIBLE CVA DIAGNOSES: - Essential (primary) hypertension - Cerebral infarction, unspecified - Type 2 diabetes mellitus without complications - Essential (primary) hypertension - Acquired absence of both cervix and uterus - USP (current) use of oral hypoglycemic drugs - Personal history of nicotine dependence - Hemiplegia, unspecified affecting right dominant side - Other detention (current) drug therapy - Ventricular premature depolarization - Aphasia - Other termite helper (current) drug therapy - Ventricular premature depolarization - Aphasia - Hemiplegia, unspecified affecting right dominant side - Cerebral infarction, unspecified - Allergy status to serum and vaccine - Type 2 diabetes mellitus without complications - Hypothyroidism, unspecified - USP (current) use of oral hypoglycemic drugs - Altered mental status, unspecified - Contact with and (suspected) exposure to COVID-19 - Acquired absence of other specified parts of digestive tract - Allergy status to serum and vaccine - Acquired absence of both cervix and uterus - Hypothyroidism, unspecified - Acquired absence of other specified parts of digestive tract - Personal history of nicotine dependence - Contact with and (suspected) exposure to COVID-19 [email or web address]
--- NOTE | 2022-02-01 23:17 | NUR ---
REPORT RECEIVED FROM WINIFRED PEREZ.
--- NOTE | 2022-02-01 23:51 | NUR ---
PT ADMITED TO ROOM 115@ 2321. A/O, SL SLURRING, WORD SEARCH NOTED. SELF TRANSFERED FROM STRETCHER TO BED, FOLLOWED COMMANDS WELL. DAUGHTER AND GRANDSON PRESENT IN ROOM. LIVES AT HOME, SON AND GRANDCHILDREN LIVE WITH HER. . BS WAS 78, WILL HAVE BEDSIDE SWALLOW TEST PRIOR TO OFFERING FOOD, OR WATER.
--- NOTE | 2022-02-02 01:39 | NUR ---
pt RESTING IN BED AWAKE. BED SIDE SWALLOW EVAL COMPLETE, WNL. ASSESSMENT COMPLETE, SLURRED SPEECH NOTED. pt COMPLAINS OF RIGHT ARM NUMBNESS AND RIGHT FACIAL NUMBNESS. RIGHT ARM WEAKNESS NOTED. IVF INFUSING WNL. SANDWICH BOX PROVIDED. TELE IN PLACE, SINUS LIBBY, HR 56. pt DENIES PAIN. CALL LIGHT IN REACH. MRI SCREENING FORM COMPLETE. DAUGHTER IN ROOM.
--- NOTE | 2022-02-02 02:28 | NUR ---
upon entering room to collect vs, iv pump alarming. pt woke to voice and educated to call bottom turning lathe tender if pt/family hears iv pump alarming.iv site wnl, fluids resumed as directed. pt verbalized understanding. vss, no additional needs. call light in reach. daughter on couch and sleeping.
--- NOTE | 2022-02-02 03:26 | NUR ---
CALL LIGHT ANSWERED. IV PUMP ALARMING, DISTAL OCCLUSION. EDUCATION PROVIDED. pt HAS NO ADDITIONAL REQUESTS. LIGHTS OFF IN ROOM. CALL LIGHT IN REACH.
--- NOTE | 2022-02-02 04:23 | NUR ---
call light answered, [place] [facility] [place] 600[place] yellow urine. scant blood noted on wipes with harper care and small amount red blood noted on pt underwear, pt and pt's mother denies hx hemmorhoids. clean attends now in place. primary rn taya aware and to assess further. vss and iv pump cleared. iv site wnl, fluids infusing as directed. no additional needs verbalized, call light in reach.
--- NOTE | 2022-02-02 06:55 | NUR ---
pt BACK IN BED AFTER UP TO RESTROOM FOR VOID. SPOTTING OF NOTED ON TOILET PAPER PER GLASS FURNACE OPERATOR. RN NOTICES SPOTTING ON UNDERWEAR. pt STATES SHE HASN'T BLED FOR 25 YEARS. NO VISIBLE SKIN BREAK DOWN, pt BELIEVES IT IS VAGINAL URINE IN HAT IS CLEAR YELLOW. SCHEDULED MEDICATION ADMINISTERED. NEURO CHECK COMPLETE. WNL NO NUMBNESS OR RIGHT SIDED WEAKNESS IN ARM NOTED AT THIS TIME. CALL LIGHT IN REACH.
--- NOTE | 2022-02-02 07:20 | NUR ---
Report from Forrest Willson RN. Patient resting in bed. Allowed to rest.
--- NOTE | 2022-02-02 08:45 | NUR ---
ALERT AND ORIENTED, SITTING UP ON EDGE OF BED, EATING BREAKFAST. DENIES PAIN AT THIS TIME. NEUROS INTACT AT THIS TIME. ASSESSMENT COMPLETED. AM MEDICATIONS ADMINISTERED. STATES SHE IS FEELING 100% BETTER THIS AM.
--- NOTE | 2022-02-02 09:59 | NUR ---
Sitting up in recliner, working with PT.
--- NOTE | 2022-02-02 10:42 | NUR ---
Sitting up in chair, working with OT at this time.
--- NOTE | 2022-02-02 11:05 | NUR ---
IV converted to SL and telemetry removed for MRI to be completed. mask provided to patient and notified patient she must wear during transport and during study. Verbalizes understanding. machine maintenance technician in room at this time. Patient taken in wheelchair to MRI.
--- NOTE | 2022-02-02 12:11 | NUR ---
RETURNS FROM MRI. TELEMETRY REPLACED, INSULIN ADMINISTERED AND IVF RESTARTED. LUNCH PROVIDED. UP IN CHAIR, DENIES OTHER NEEDS AT THIS TIME. CALL LIGHT IN REACH.
--- NOTE | 2022-02-02 13:08 | NUR ---
PT TAKEN TO IMAGING FOR MRI. WILL FOLLOW
--- NOTE | 2022-02-02 13:40 | NUR ---
PATIENT HAD A STUTTERING STROKE MOST OF THE SYMPTOMS HAVE RESOLVED. LIVES IN OWN HOME WITH SON AND DAUGHTER.NO DME NEEDED,PATIENT ABLE TO GET AROUND BY HERSELF. CALL DAUGHTER CYNTHIA ESPITIA FOR FOR ANY EMERGENCIES. IS .
--- NOTE | 2022-02-02 14:05 | NUR ---
Patient having echocardiogram study done at this time, lying in bed.
--- NOTE | 2022-02-02 15:32 | EKG ---
[facility] [address] [place] [address] Signed Sinus bradycardia with sinus arrhythmia Right bundle branch block Abnormal ECG When compared with ECG of 01-FEB-2022 19:39, (Unconfirmed) No significant change was found Confirmed by ZO QUEEN MD ([id number]) on 02/02/2022 3:32:07 PM Electronically Signed By: ZO QUEEN MD 02/02/22 1532 PATIENT NAME: HOLLAND EDWARDS Electrocardiogram DATE OF : 43 PHYSICIAN: ZO QUEEN MD REPORT #: [id number] REPORT IS CONFIDENTIAL AND NOT TO BE RELEASED WITHOUT AUTHORIZATION
--- NOTE | 2022-02-02 18:32 | NUR ---
Alert and oriented X4 today. Independent in the room, daughter remains at bedside all day. Uses call light appropriately. MRI and echo completed today. IV is SL. Takes oral medications without difficulty. Tolerating diabetic diet. Insulin given with lunch and supper. Neurological status continues improving, states she is feeling 100% better today. Telemetry remains in place at this time. LIkely home tomorrow per Dr. Peter's note, if she continues without incidents of neurological changes.
--- NOTE | 2022-02-02 19:54 | NUR ---
UP IN CHAIR, LEGS ELEVATED. ROOM AIR, TELE#[address], SR DENIES CP, PT ON RESPIRATORY [id number]. FAMILY ROOMING IN
--- NOTE | 2022-02-02 23:27 | NUR ---
Cont on isolation precautions, turns and repositiones self in bed, on room air, family at bedside
--- NOTE | 2022-02-03 01:11 | NUR ---
On room air, tele#10 in[address] SR w multiform PVC's. sleeping on her R side, no distress, eys closed. Cont on Resp isolation, family rooming in
--- NOTE | 2022-02-03 04:57 | NUR ---
Pt continues on Respiratory Isolation Precautions, on room air, clear lungs, on tele#10 SR with occassional PVC's. denies CP, independent in room, voiding QS, Cbg 256 received 5 units ss insulin. follows instructions, SL LAC patent. strong heel stiffener and neuro checks WNL during assessments, no deficits noted, able to understand speech. tolerating diet and fluids well. Family rooming in
--- NOTE | 2022-02-03 06:08 | NUR ---
Up to br, independent, no gait problems, no facial residual problems. voiding QS, back to bed tolerated well, tolerating liquids well, pleasnt and cooperative. Cont on room air and ioslation precautions, family rooming in
--- NOTE | 2022-02-03 06:31 | NUR ---
Pt took tele box off, showered, did not called nursing staff, used sheet as towels as she had no towels in room. towels provided. Irritable mood, reassaured. tele back on. IV site patent, covered with fishnet arm sleeve pt put her own street clothes on, declined to use our gowns. walking in room w/o problems. did own oral and hair combing. instructed to call nursing staff ofr help, Got very dismissive, took several cues to place Tele back on. cont to reassure
--- NOTE | 2022-02-03 09:00 | NUR ---
PATIENT ASLEEP IN CHAIR UPON ENTRANCE. IN ROOM W/ NURSE INSTRUCTOR ELBA TO BRING BREAKFAST AND ADMINISTER 0800 AND 0900 MEDS. HELPED PATIENT SIT UPRIGHT AND SET UP BREAKFAST. SALINE LOCKED IV. PATIENT ALERT & ORIENTED, STATES SHE IS SLEEPY DESPITE GETTING FINE SLEEP. PATIENT NOW EATING BREAKFAST IN CHAIR. CALL LIGHT W/ IN REACH. DENIED ANY CARE NEEDS. SN HAWLEY
--- NOTE | 2022-02-03 09:45 | NUR ---
REPORT RECEIVED FROM NIGHT RN AND PT. CARE RESUMED. PT. IS ALERT AND ORIENTED TO ALL. SON AT BEDSIDE. NEURO ASSESSMENT COMPLETED AND PT. AGREES THAT SHE HAS MILD EXPRESSIVE APHASIA. NOT OTHER NEURO DEFICITS NOTED. CVA EDUCATION PROVIDED BY THIS NURSE. PT. DENIES PAIN OR FURTHER NEEDS. LEFT RESTING WITH CALL LIGHT IN REACH.
--- NOTE | 2022-02-03 10:30 | NUR ---
PATIENT WAS WALKING IN ROOM UPON ENTRANCE. VITALS TAKEN. HEAD TO TOE ASSESSMENT COMPLETE. PATIENT VERY TALKATIVE, ENGAGED IN CONVERSATION. STATES SHE IS EAGER TO GO HOME. PATIENT IS HAPPY AND SMILING AND STATES SHE IS IN A POSITIVE MOOD TODAY. SHE STATES SHE HER SPEECH IS SOMEWHAT DIFFICULT TO PRONUNCIATE, BUT IF SHE SLOWS DOWN SHE IS FINE, AND THAT SHE IS AT TIMES FORGETFUL BUT THAT'S DUE TO NORMAL AGING. PATIENT IS UPRIGHT IN CHAIR TALKING WITH SON AT HER SIDE. PATIENT DENIED ANY CARE NEEDS. CALL LIGHT W/IN REACH. I REASSURED PATIENT I'D BE BACK IN ROOM TO CHECK BLOOD SUGAR LEVELS BEFORE LUNCH. SN HAWLEY
[2022-02-03] MEDS ORDERED: PLAVIX75 MG PO (11:32)
[2022-02-03] MEDS ORDERED: LO-DOSE ASPIRIN81 MG PO (11:33)
[2022-02-03] MEDS ORDERED: JANUVIA100 MG PO (11:35)
[2022-02-03] MEDS ORDERED: NOVOLIN R100 UNIT/2 SUB-Q (11:39)
[2022-02-03] MEDS ORDERED: INSULIN PEN NE1 EAC3 MISC (11:40)
[2022-02-03] MEDS ORDERED: ACTOS15 MG PO (11:46)
[2022-02-03] MEDS ORDERED: MAGOX 400400 MG PO (12:24)
--- NOTE | 2022-02-03 12:29 | NUR ---
MED REC COMPLETE
--- NOTE | 2022-02-03 13:30 | NUR ---
ALL DISCHARGE INSTRUCTIONS REVIEWED AND QUESTIONS ANSWERED WITH PT. IV TAKEN OUT BY SRN WITH CATH INTACT. VITALS STABLE. PT. LEFT VIA WHEELCHAIR WITH ALL BELONGINGS AND WAS TAKEN HOME BY SON.
== END 2022-02-03 13:33 | disposition home or self-care (01) | DRG 66 ==
LOC: ED 19:22 → MS 22:18
PROVIDERS: ADMIT Internal Medicine; ATTEND Internal Medicine
DX: I63.511 Cerebral infarction due to unspecified occlusion or stenosis of right middle cerebral artery (principal); R47.1 Dysarthria and anarthria; I67.1 Cerebral aneurysm, nonruptured; I10 Essential (primary) hypertension; E78.5 Hyperlipidemia, unspecified; E03.9 Hypothyroidism, unspecified; Z86.73 Personal history of transient ischemic attack (TIA), and cerebral infarction without residual deficits; Z88.7 Allergy status to serum and vaccine; Z79.82 Long term (current) use of aspirin; R29.810 Facial weakness; Z87.891 Personal history of nicotine dependence; Z90.710 Acquired absence of both cervix and uterus; G83.21 Monoplegia of upper limb affecting right dominant side; F39 Unspecified mood [affective] disorder; Z79.84 Long term (current) use of oral hypoglycemic drugs; Z79.02 Long term (current) use of antithrombotics/antiplatelets; Z79.4 Long term (current) use of insulin; E11.649 Type 2 diabetes mellitus with hypoglycemia without coma; R47.81 Slurred speech
CPT/HCPCS: 36415; 70450; 70496; 70498; 70551; 71045; 80053; 80061; 81001; 83036; 84484; 85025; 85610; 87088; 87502; 92523; 93005; 93010; 93306; 97162; 97165; 99285-25; A9270; C9803; J1650; J1815; J7121; Q9967; U0003

== ENCOUNTER 2022-03-22 18:13 | Emergency (ER) | payer MEDICARE ==
[~2022-03-22] VITALS: Ht 162.6 cm; Wt 82.1 kg
[~2022-03-22 18:13] MED LIST changes: +ACTOS15 MG PO; +INSULIN PEN NE1 EAC3 MISC; +LO-DOSE ASPIRIN81 MG PO; +MAGOX 400400 MG PO; +NOVOLIN R100 UNIT/2 SUB-Q
== END 2022-03-22 19:59 | disposition home or self-care (01) ==
LOC: ED 18:13
DX: G45.9 Transient cerebral ischemic attack, unspecified (principal); E11.9 Type 2 diabetes mellitus without complications; I10 Essential (primary) hypertension; E03.9 Hypothyroidism, unspecified; Z86.73 Personal history of transient ischemic attack (TIA), and cerebral infarction without residual deficits; Z87.891 Personal history of nicotine dependence; Z88.7 Allergy status to serum and vaccine; Z79.899 Other long term (current) drug therapy; Z79.02 Long term (current) use of antithrombotics/antiplatelets; Z79.82 Long term (current) use of aspirin; Z79.4 Long term (current) use of insulin
CPT/HCPCS: 99284

== ENCOUNTER 2022-10-13 18:58 | Emergency (ER) | payer MEDICARE ==
[~2022-10-13] VITALS: Ht 162.6 cm; Wt 82.1 kg
--- OUTSIDE RECORDS SUMMARY | ~2022-10-13 | XMS | Continuity of Care Document ---
Demographics + + + | Address | [address] | | | [place] [address] | + + + | Preferred Language | Unknown | + + + | Marital Status | | + + + | Presybeterian Affiliation | Unknown | + + + | Race | White | + + + | Ethnic Group | Not or | + + + Author + + + | Author | [facility] | + + + | Organization | [facility] | + + + | Address | [address] | | | [place], [place] [address] | + + + | Phone | | + + + Care Team Providers + + + + | Care Pick Up Name | Role | Phone | + + + + Unavailable | Unavailable | + + + + Unavailable | Unavailable | + + + + Unavailable | Unavailable | + + + + Allergies No information. Encounters No information. Functional Status No information. Immunizations No information. Medications + + + + | date | description | facility | + + + + | 2021-11-22 00:00 | NIACIN | [facility] | + + + + | 2022-02-01 00:00 | NIACIN | [facility] | + + + + | 2022-02-03 00:00 | NIACIN | [facility] | + + + + | 2021-11-22 00:00 | Turmeric Root Extract | [facility] | + + + + | 2022-02-01 00:00 | Turmeric Root Extract | [facility] | + + + + | 2022-02-03 00:00 | Turmeric Root Extract | [facility] | + + + + | 2021-11-22 00:00 | POTASSIUM GLUCONATE | [facility] | + + + + | 2022-02-01 00:00 | POTASSIUM GLUCONATE | [facility] | + + + + | 2022-02-03 00:00 | POTASSIUM GLUCONATE | [facility] | + + + + | 2021-11-22 00:00 | CHROMIUM PICOLINATE | [facility] | + + + + | 2022-02-01 00:00 | CHROMIUM PICOLINATE | [facility] | + + + + | 2022-02-03 00:00 | CHROMIUM PICOLINATE | [facility] | + + + + | 2021-11-22 00:00 | MELATONIN | [facility] | + + + + | 2022-02-01 00:00 | MELATONIN | [facility] | + + + + | 2022-02-03 00:00 | MELATONIN | [facility] | + + + + | 2021-11-22 00:00 | INSULIN LISPRO | [facility] | + + + + | 2022-02-01 00:00 | INSULIN LISPRO | [facility] | + + + + | 2022-02-03 00:00 | INSULIN LISPRO | [facility] | + + + + | 2021-11-22 00:00 | SIMVASTATIN | [facility] | + + + + | 2022-02-01 00:00 | SIMVASTATIN | [facility] | + + + + | 2022-02-03 00:00 | SIMVASTATIN | [facility] | + + + + | 2021-11-22 00:00 | ASPIRIN | [facility] | + + + + | 2022-02-01 00:00 | ASPIRIN | [facility] | + + + + | 2022-02-03 00:00 | ASPIRIN | [facility] | + + + + | 2021-11-22 00:00 | Cholecalciferol (Vitamin | [facility] | | | D3) | | + + + + | 2022-02-01 00:00 | Cholecalciferol (Vitamin | [facility] | | | D3) | | + + + + | 2022-02-03 00:00 | Cholecalciferol (Vitamin | [facility] | | | D3) | | + + + + | 2022-02-03 00:00 | MAGNESIUM OXIDE | [facility] | + + + + | 2020-12-27 00:00 | CLOPIDOGREL BISULFATE | [facility] | + + + + | 2022-02-01 00:00 | CLOPIDOGREL BISULFATE | [facility] | + + + + | 2022-02-03 00:00 | CLOPIDOGREL BISULFATE | [facility] | + + + + | 2022-02-03 00:00 | Insulin Regular, Human | [facility] | + + + + | 2022-02-03 00:00 | PIOGLITAZONE HCL | [facility] | + + + + | 2021-11-22 00:00 | ASCORBIC ACID | [facility] | + + + + | 2022-02-01 00:00 | ASCORBIC ACID | [facility] | + + + + | 2022-02-03 00:00 | ASCORBIC ACID | [facility] | + + + + | 2022-02-03 00:00 | ASPIRIN | [facility] | + + + + | 2020-07-18 00:00 | CLOPIDOGREL BISULFATE | [facility] | + + + + | 2021-11-15 00:00 | CLOPIDOGREL BISULFATE | [facility] | + + + + | 2021-11-22 00:00 | CYANOCOBALAMIN (VITAMIN | [facility] | | | B-12) | | + + + + | 2022-02-01 00:00 | CYANOCOBALAMIN (VITAMIN | [facility] | | | B-12) | | + + + + | 2022-02-03 00:00 | CYANOCOBALAMIN (VITAMIN | [facility] | | | B-12) | | + + + + | 2021-11-22 00:00 | NPH, HUMAN INSULIN | [facility] | | | ISOPHANE | | + + + + | 2022-02-01 00:00 | NPH, HUMAN INSULIN | [facility] | | | ISOPHANE | | + + + + | 2022-02-03 00:00 | NPH, HUMAN INSULIN | [facility] | | | ISOPHANE | | + + + + | 2021-11-22 00:00 | ESCITALOPRAM OXALATE | [facility] | + + + + | 2022-02-01 00:00 | ESCITALOPRAM OXALATE | [facility] | + + + + | 2022-02-03 00:00 | ESCITALOPRAM OXALATE | [facility] | + + + + | 2021-11-22 00:00 | SITAGLIPTIN PHOSPHATE | [facility] | + + + + | 2022-02-01 00:00 | SITAGLIPTIN PHOSPHATE | [facility] | + + + + | 2022-02-03 00:00 | SITAGLIPTIN PHOSPHATE | [facility] | + + + + | 2021-11-15 00:00 | ASPIRIN | [facility] | + + + + | 2021-11-22 00:00 | INSULIN | [facility] | | | GLARGINE,[facility].REC.ANLOG | | + + + + | 2022-02-01 00:00 | INSULIN | [facility] | | | GLARGINE,HUM.REC.ANLOG | | + + + + | 2022-02-03 00:00 | INSULIN | [facility] | | | GLARGINE,HUM.REC.ANLOG | | + + + + | 2021-11-22 00:00 | METFORMIN HCL | [facility] | + + + + | 2022-02-01 00:00 | METFORMIN HCL | [facility] | + + + + | 2022-02-03 00:00 | METFORMIN HCL | [facility] | + + + + | 2021-11-22 00:00 | LEVOTHYROXINE SODIUM | [facility] | + + + + | 2022-02-01 00:00 | LEVOTHYROXINE SODIUM | [facility] | + + + + | 2022-02-03 00:00 | LEVOTHYROXINE SODIUM | [facility] | + + + + | 2021-11-22 00:00 | | [facility] | | | Losartan/Hydrochlorothiazid | | | | e | | + + + + | 2022-02-01 00:00 | | [facility] | | | Losartan/Hydrochlorothiazid | | | | e | | + + + + | 2022-02-03 00:00 | | [facility] | | | Losartan/Hydrochlorothiazid | | | | e | | + + + + Problems + + + + | date | description | facility | + + + + | 2014-07-29 00:00 | Non-cardiac chest pain | [facility] | + + + + | 2016-08-30 00:00 | Encounter for medical | [facility] | | | screening examination | | + + + + | 2017-04-06 00:00 | Cough due to bronchospasm | [facility] | + + + + | 2017-04-06 00:00 | Acute urinary tract | [facility] | | | infection | | + + + + | 2017-04-06 00:00 | Fever | [facility] | + + + + | 2017-04-06 00:00 | Weakness | [facility] | + + + + | 2019-12-30 00:00 | Transient ischemic attack | [facility] | + + + + | 2020-12-28 00:00 | History of transient | [facility] | | | ischemic attack | | + + + + | 2021-07-04 00:00 | Hypoglycemia | [facility] | + + + + | 2021-08-05 00:00 | Urinary tract infection | [facility] | + + + + | 2021-08-05 19:57 | Hypothyroidism, | [facility] | | | unspecified [facility] | + + + + | 2021-08-05 19:57 | Type 1 diabetes mellitus | [facility] | | | with hypoglycemia without | [facility] | | | coma | | + + + + | 2021-08-05 19:57 | Hypoglycemia, unspecified | [facility] | | | | [facility] | + + + + | 2021-08-05 19:57 | Essential (primary) | [facility] | | | hypertension | [facility] | + + + + | 2021-08-05 19:57 | Urinary tract infection, | [facility] | | | site not specified | [facility] | + + + + | 2021-08-05 19:57 | snf (current) use of | [facility] | | | aspirin | [facility] | + + + + | 2021-08-05 19:57 | snf (current) use of | [facility] | | | oral hypoglycemic drugs | [facility] | + + + + | 2021-08-05 19:57 | Other fci (current) | [facility] | | | drug therapy | [facility] | + + + + | 2021-08-05 19:57 | Personal history of | [facility] | | | transient ischemic attack | [facility] | | | (TIA), and cerebral | | | | infarction without residual | | | | deficits | | + + + + | 2021-08-05 19:57 | Personal history of | [facility] | | | nicotine dependence | [facility] | + + + + | 2021-08-05 19:57 | Allergy status to serum | [facility] | | | and vaccine | [facility] | + + + + | 2021-11-13 00:00 | Cerebrovascular accident | [facility] | | | (CVA) | | + + + + Procedures No information. Results/Labs +--------+--------+ +---------+--------+---------+ | test | date | facility | value | unit | notes | +--------+--------+ +---------+--------+---------+ + + | Result panel 1 | + + + + + +--------+ + + | | 2021-07-04 | [facility] | 10.9 | (missing) | (missing) | | (unavailable | 17:08 | [facility] | | | | + + + +--------+ + + + + | Result panel 2 | + + + + + +--------+ + + | | 2021-08-05 | [facility] | 7.40 | (missing) | (missing) | | (unavailable | 20:14 | [facility] | | | | + + + +--------+ + + + + | Result panel 3 | + + + + + + + + + | | 2021-08-05 | [facility] | NONE SEEN | (missing) | (missing) | | (unavailable | 21:36 | [facility] | | | | + + + + + + + + + | Result panel 4 | + + + + + +--------+ + + | | 2021-08-05 | [facility] | RARE | (missing) | (missing) | | (unavailable | 21:36 | [facility] | | | | + + + +--------+ + + + + | Result panel 5 | + + + + + + + + + | | 2021-08-05 | [facility] | NONE SEEN | (missing) | (missing) | | (unavailable | 21:36 | [facility] | | | | + + + + + + + + + | Result panel 6 | + + + + + +--------+ + + | | 2021-11-13 | [facility] | 12.9 | (missing) | (missing) | | (unavailable | 16:47 | [facility] | | | | + + + +--------+ + + + + | Result panel 7 | + + + + + +-------+ + + | | 2021-11-13 | [facility] | 7.2 | (missing) | (missing) | | (unavailable | 16:47 | [facility] | | | | + + + +-------+ + + + + | Result panel 8 | + + + + + +-------+ + + | | 2021-11-13 | [facility] | 3.6 | (missing) | (missing) | | (unavailable | 16:47 [facility] | | | | + + + +-------+ + + + + | Result panel 9 | + + + + + +-------+ + + | | 2021-11-13 | [facility] | 3.6 | (missing) | (missing) | | (unavailable | 16:47 [facility] | | | | + + + +-------+ + + + + | Result panel 10 | + + + + + +--------+ + + | | 2021-11-13 | [facility] | 1.00 | (missing) | (missing) | | (unavailable | 16:47 | [facility] | | | | + + + +--------+ + + + + | Result panel 11 | + + + + + +-------+ + + | | 2021-11-13 | [facility] | 0.3 | (missing) | (missing) | | (unavailable | 16:47 | [facility] | | | | + + + +-------+ + + + + | Result panel 12 | + + + + + +------+ + + | | 2021-11-13 | [facility] | 16 | (missing) | (missing) | | (unavailable | 16:47 | [facility] | | | | + + + +------+ + + + + | Result panel 13 | + + + + + +------+ + + | | 2021-11-13 | [facility] | 13 | (missing) | (missing) | | (unavailable | 16:47 | [facility] | | | | + + + +------+ + + + + | Result panel 14 | + + + + + +------+ + + | | 2021-11-13 | [facility] | 86 | (missing) | (missing) | | (unavailable | 16:47 | [facility] | | | | + + + +------+ + + + + | Result panel 15 | + + + + + +--------+ + + | | 2021-11-13 | [facility] | 1.00 | (missing) | (missing) | | (unavailable | 16:47 | [facility] | | | | + + + +--------+ + + + + | Result panel 16 | + + + + + +--------+ + + | | 2021-11-13 | [facility] | 37.0 | (missing) | (missing) | | (unavailable | 16:47 | [facility] | | | | + + + +--------+ + + + + | Result panel 17 | + + + + + + + + + | | 2021-11-13 | [facility] | NEGATIVE | (missing) | (missing) | | (unavailable | 18:10 | [facility] | | | | + + + + + + + + + | Result panel 18 | + + + + + + + + + | | 2021-11-13 | [facility] | NEGATIVE | (missing) | (missing) | | (unavailable | 18:10 | [facility] | | | | + + + + + + + + + | Result panel 19 | + + + + + + + + + | | 2021-11-13 | [facility] | NEGATIVE | (missing) | (missing) | | (unavailable | 18:10 | [facility] | | | | + + + + + + + + + | Result panel 20 | + + + + + + + + + | | 2021-11-13 | [facility] | NEGATIVE | (missing) | (missing) | | (unavailable | 18:10 | [facility] | | | | + + + + + + + + + | Result panel 21 | + + + + + +---------+ + + | | 2021-11-13 | [facility] | 1.010 | (missing) | (missing) | | (unavailable | 18:30 | [facility] | | | | + + + +---------+ + + + + | Result panel 22 | + + + + + + + + + | | 2021-11-13 | [facility] | TRACE-L | (missing) | (missing) | | (unavailable | 18:30 | [facility] | | | | + + + + + + + + + | Result panel 23 | + + + + + +-------+ + + | | 2021-11-13 | [facility] | 7.0 | (missing) | (missing) | | (unavailable | 18:30 [facility] | | | | + + + +-------+ + + + + | Result panel 24 | + + + + + + + + + | | 2021-11-13 | [facility] | NEGATIVE | (missing) | (missing) | | (unavailable | 18:30 | [facility] | | | | + + + + + + + + + | Result panel 25 | + + + + + + + + + | | 2021-11-13 | [facility] | NORMAL | (missing) | (missing) | | (unavailable | 18:30 | [facility] | | | | + + + + + + + + + | Result panel 26 | + + + + + + + + + | | 2021-11-13 | [facility] | NEGATIVE | (missing) | (missing) | | (unavailable | 18:30 [facility] | | | | + + + + + + + + + | Result panel 27 | + + + + + + + + + | | 2021-11-13 | [facility] | NEGATIVE | (missing) | (missing) | | (unavailable | 18:30 [facility] | | | | + + + + + + + + + | Result panel 28 | + + + + + +-------+ + + | | 2021-11-13 | [facility] | 2-3 | (missing) | (missing) | | (unavailable | 18:30 [facility] | | | | + + + +-------+ + + + + | Result panel 29 | + + + + + +-------+ + + | | 2021-11-13 | [facility] | 0-1 | (missing) | (missing) | | (unavailable | 18:30 [facility] | | | | + + + +-------+ + + + + | Result panel 30 | + + + + + + + + + | | 2021-11-13 | [facility] | SQUAMOUS 1+ | (missing) | (missing) | | (unavailable | 18:30 [facility] | | | | + + + + + + + + + | Result panel 31 | + + + + + +------+ + + | | 2021-11-13 | [facility] | No | (missing) | (missing) | | (unavailable | 18:30 [facility] | | | | + + + +------+ + + + + | Result panel 32 | + + + + + + + + + | | 2021-11-13 | [facility] | CLEAN CATCH | (missing) | (missing) | | (unavailable | 18:30 [facility] | | | | + + + + + + + + + | Result panel 33 | + + + + + + + + + | | 2021-11-13 | [facility] | YELLOW | (missing) | (missing) | | (unavailable | 18:30 [facility] | | | | + + + + + + + + + | Result panel 34 | + + + + + +---------+ + + | | 2021-11-13 | [facility] | CLEAR | (missing) | (missing) | | (unavailable | 18:30 [facility] | | | | + + + +---------+ + + + + | Result panel 35 | + + + + + + + + + | | 2021-11-13 | [facility] | MODERATE | (missing) | (missing) | | (unavailable | 18:30 [facility] | | | | + + + + + + + + + | Result panel 36 | + + + + + + + + + | | 2021-11-13 | [facility] | NEGATIVE | (missing) | (missing) | | (unavailable | 18:30 [facility] | | | | + + + + + + + + + | Result panel 37 | + + + + + + + + + | | 2021-11-13 | [facility] | NEGATIVE | (missing) | (missing) | | (unavailable | 18:30 [facility] | | | | + + + + + + + + + | Result panel 38 | + + + + + +-------+---------+ + | | 2021-11-14 | [facility] | 1.9 | mg/dL | (missing) | | (unavailable | 05:15 | [facility] | | | | + + + +-------+---------+ + + + | Result panel 39 | + + + + + +-------+---------+ + | | 2021-11-14 | [facility] | 121 | mg/dL | (missing) | | (unavailable | 05:15 | [facility] | | | | + + + +-------+---------+ + + + | Result panel 40 | + + + + + +------+ + + | | 2021-11-14 | [facility] | 51 | (missing) | (missing) | | (unavailable | 05:15 | [facility] | | | | + + + +------+ + + + + | Result panel 41 | + + + + + +---------+ + + | | 2021-11-14 | [facility] | 70.00 | (missing) | (missing) | | (unavailable | 05:15 [facility] | | | | + + + +---------+ + + + + | Result panel 42 | + + + + + +------+---------+ + | | 2021-11-14 | [facility] | 39 | mg/dL | (missing) | | (unavailable | 05:15 [facility] | | | | + + + +------+---------+ + + + | Result panel 43 | + + + + + +-------+ + + | | 2021-11-14 | [facility] | 2.4 | (missing) | (missing) | | (unavailable | 05:15 [facility] | | | | + + + +-------+ + + + + | Result panel 44 | + + + + + +------+ + + | | 2021-11-14 | [facility] | 31 | (missing) | (missing) | | (unavailable | 05:15 [facility] | | | | + + + +------+ + + + + | Result panel 45 | + + + + + +-------+ + + | | 2021-11-14 | [facility] | 157 | (missing) | (missing) | | (unavailable | 05:15 | [facility] | | | | + + + +-------+ + + + + | Result panel 46 | + + + + + +-------+ + + | | 2021-11-15 | [facility] | 7.2 | (missing) | (missing) | | (unavailable | 05:33 | [facility] | | | | + + + +-------+ + + + + | Result panel 47 | + + + + + +--------+ + + | | 2021-11-15 | [facility] | 4.26 | (missing) | (missing) | | (unavailable | 05:33 [facility] | | | | + + + +--------+ + + + + | Result panel 48 | + + + + + +--------+ + + | | 2021-11-15 | [facility] | 12.8 | (missing) | (missing) | | (unavailable | 05:33 [facility] | | | | + + + +--------+ + + + + | Result panel 49 | + + + + + +--------+ + + | | 2021-11-15 | [facility] | 38.5 | (missing) | (missing) | | (unavailable | 05:33 [facility] | | | | + + + +--------+ + + + + | Result panel 50 | + + + + + +--------+ + + | | 2021-11-15 | [facility] | 90.4 | (missing) | (missing) | | (unavailable | 05:33 | [facility] | | | | + + + +--------+ + + + + | Result panel 51 | + + + + + +--------+ + + | | 2021-11-15 | [facility] | 30.0 | (missing) | (missing) | | (unavailable | 05:33 [facility] | | | | + + + +--------+ + + + + | Result panel 52 | + + + + + +--------+ + + | | 2021-11-15 | [facility] | 33.2 | (missing) | (missing) | | (unavailable | 05:33 [facility] | | | | + + + +--------+ + + + + | Result panel 53 | + + + + + +--------+ + + | | 2021-11-15 | [facility] | 13.1 | (missing) | (missing) | | (unavailable | 05:33 [facility] | | | | + + + +--------+ + + + + | Result panel 54 | + + + + + +-------+ + + | | 2021-11-15 | [facility] | 263 | (missing) | (missing) | | (unavailable | 05:33 [facility] | | | | + + + +-------+ + + + + | Result panel 55 | + + + + + +--------+ + + | | 2021-11-15 | [facility] | 67.6 | (missing) | (missing) | | (unavailable | 05:33 [facility] | | | | + + + +--------+ + + + + | Result panel 56 | + + + + + +--------+ + + | | 2021-11-15 | [facility] | 13.7 | (missing) | (missing) | | (unavailable | 05:33 [facility] | | | | + + + +--------+ + + + + | Result panel 57 | + + + + + +--------+ + + | | 2021-11-15 | [facility] | 10.9 | (missing) | (missing) | | (unavailable | 05:33 [facility] | | | | + + + +--------+ + + + + | Result panel 58 | + + + + + +-------+ + + | | 2021-11-15 | [facility] | 6.8 | (missing) | (missing) | | (unavailable | 05:33 [facility] | | | | + + + +-------+ + + + + | Result panel 59 | + + + + + +-------+ + + | | 2021-11-15 | [facility] | 1.0 | (missing) | (missing) | | (unavailable | 05:33 [facility] | | | | + + + +-------+ + + + + | Result panel 60 | + + + + + +-------+---------+ + | | 2021-11-15 | [facility] | 174 | mg/dL | (missing) | | (unavailable | 05:33 [facility] | | | | + + + +-------+---------+ + + + | Result panel 61 | + + + + + +------+---------+ + | | 2021-11-15 | [facility] | 17 | mg/dL | (missing) | | (unavailable | 05:33 [facility] | | | | + + + +------+---------+ + + + | Result panel 62 | + + + + + +--------+---------+ + | | 2021-11-15 | [facility] | 0.89 | mg/dL | (missing) | | (unavailable | 05:33 [facility] | | | | + + + +--------+---------+ + + + | Result panel 63 | + + + + + +------+ + + | | 2021-11-15 | [facility] | 67 | (missing) | (missing) | | (unavailable | 05:33 [facility] | | | | + + + +------+ + + + + | Result panel 64 | + + + + + +---------+ + + | | 2021-11-15 | [facility] | 19.10 | (missing) | (missing) | | (unavailable | 05:33 [facility] | | | | + + + +---------+ + + + + | Result panel 65 | + + + + + +-------+ + + | | 2021-11-15 | [facility] | 139 | (missing) | (missing) | | (unavailable | 05:33 [facility] | | | | + + + +-------+ + + + + | Result panel 66 | + + + + + +-------+ + + | | 2021-11-15 | [facility] | 4.1 | (missing) | (missing) | | (unavailable | 05:33 [facility] | | | | + + + +-------+ + + + + | Result panel 67 | + + + + + +-------+ + + | | 2021-11-15 | [facility] | 103 | (missing) | (missing) | | (unavailable | 05:33 [facility] | | | | + + + +-------+ + + + + | Result panel 68 | + + + + + +------+ + + | | 2021-11-15 | [facility] | 28 | (missing) | (missing) | | (unavailable | 05:33 [facility] | | | | + + + +------+ + + + + | Result panel 69 | + + + + + +--------+ + + | | 2021-11-15 | [facility] | 12.1 | (missing) | (missing) | | (unavailable | 05:33 [facility] | | | | + + + +--------+ + + + + | Result panel 70 | + + + + + +-------+---------+ + | | 2021-11-15 | [facility] | 9.0 | mg/dL | (missing) | | (unavailable | 05:33 | [facility] | | | | + + + +-------+---------+ + + + | Result panel 71 | + + + + + +-------+ + + | | 2021-11-15 | [facility] | 185 | (missing) | (missing) | | (unavailable | 07:43 | [facility] | | | | + + + +-------+ + + + + | Result panel 72 | + + + + + +-------+ + + | | 2022-02-01 | [facility] | 3.6 | (missing) | (missing) | | (unavailable | 17:03 | [facility] | | | | + + + +-------+ + + + + | Result panel 73 | + + + + + +-------+ + + | | 2022-02-01 | [facility] | 4.0 | (missing) | (missing) | | (unavailable | 17:03 | [facility] | | | | + + + +-------+ + + + + | Result panel 74 | + + + + + +--------+ + + | | 2022-02-01 | [facility] | 0.90 | (missing) | (missing) | | (unavailable | 17:03 | [facility] | | | | + + + +--------+ + + + + | Result panel 75 | + + + + + +-------+ + + | | 2022-02-01 | [facility] | 0.5 | (missing) | (missing) | | (unavailable | 17:03 | [facility] | | | | + + + +-------+ + + + + | Result panel 76 | + + + + + +------+ + + | | 2022-02-01 | [facility] | 24 | (missing) | (missing) | | (unavailable | 17:03 | [facility] | | | | + + + +------+ + + + + | Result panel 77 | + + + + + +------+ + + | | 2022-02-01 | [facility] | 33 | (missing) | (missing) | | (unavailable | 17:03 | [facility] | | | | + + + +------+ + + + + | Result panel 78 | + + + + + +------+ + + | | 2022-02-01 | [facility] | 96 | (missing) | (missing) | | (unavailable | 17:03 | [facility] | | | | + + + +------+ + + + + | Result panel 79 | + + + + + +-------+ + + | | 2022-02-01 | [facility] | 9.0 | (missing) | (missing) | | (unavailable | 17:03 | [facility] | | | | + + + +-------+ + + + + | Result panel 80 | + + + + + +--------+ + + | | 2022-02-01 | [facility] | 4.62 | (missing) | (missing) | | (unavailable | 17:03 | [facility] | | | | + + + +--------+ + + + + | Result panel 81 | + + + + + +--------+ + + | | 2022-02-01 | [facility] | 13.8 | (missing) | (missing) | | (unavailable | 17:03 | [facility] | | | | + + + +--------+ + + + + | Result panel 82 | + + + + + +--------+ + + | | 2022-02-01 | [facility] | 40.9 | (missing) | (missing) | | (unavailable | 17:03 | [facility] | | | | + + + +--------+ + + + + | Result panel 83 | + + + + + +--------+ + + | | 2022-02-01 | [facility] | 88.5 | (missing) | (missing) | | (unavailable | 17:03 | [facility] | | | | + + + +--------+ + + + + | Result panel 84 | + + + + + +--------+ + + | | 2022-02-01 | [facility] | 30.0 | (missing) | (missing) | | (unavailable | 17:03 | [facility] | | | | + + + +--------+ + + + + | Result panel 85 | + + + + + +--------+ + + | | 2022-02-01 | [facility] | 33.9 | (missing) | (missing) | | (unavailable | 17:03 | [facility] | | | | + + + +--------+ + + + + | Result panel 86 | + + + + + +--------+ + + | | 2022-02-01 | [facility] | 12.8 | (missing) | (missing) | | (unavailable | 17:03 | [facility] | | | | + + + +--------+ + + + + | Result panel 87 | + + + + + +-------+ + + | | 2022-02-01 | [facility] | 307 | (missing) | (missing) | | (unavailable | 17:03 | [facility] | | | + + + +-------+ + + + + | Result panel 88 | + + + + + +--------+ + + | | 2022-02-01 | [facility] | 71.3 | (missing) | (missing) | | (unavailable | 17:03 | [facility] | | | | + + + +--------+ + + + + | Result panel 89 | + + + + + +--------+ + + | | 2022-02-01 | [facility] | 16.7 | (missing) | (missing) | | (unavailable | 17:03 [facility] | | | | + + + +--------+ + + + + | Result panel 90 | + + + + + +-------+ + + | | 2022-02-01 | [facility] | 8.5 | (missing) | (missing) | | (unavailable | 17:03 [facility] | | | | + + + +-------+ + + + + | Result panel 91 | + + + + + +-------+ + + | | 2022-02-01 | [facility] | 2.5 | (missing) | (missing) | | (unavailable | 17:03 | [facility] | | | | + + + +-------+ + + + + | Result panel 92 | + + + + + +-------+ + + | | 2022-02-01 | [facility] | 1.0 | (missing) | (missing) | | (unavailable | 17:03 | [facility] | | | | + + + +-------+ + + + + | Result panel 93 | + + + + + +-------+---------+ + | | 2022-02-01 | [facility] | 116 | mg/dL | (missing) | | (unavailable | 17:03 | [facility] | | | | + + + +-------+---------+ + + + | Result panel 94 | + + + + + +------+---------+ + | | 2022-02-01 | [facility] | 22 | mg/dL | (missing) | | (unavailable | 17:03 | [facility] | | | | + + + +------+---------+ + + + | Result panel 95 | + + + + + +--------+---------+ + | | 2022-02-01 | [facility] | 1.23 | mg/dL | (missing) | | (unavailable | 17:03 | [facility] | | | | + + + +--------+---------+ + + + | Result panel 96 | + + + + + +------+ + + | | 2022-02-01 | [facility] | 45 | (missing) | (missing) | | (unavailable | 17:03 | [facility] | | | | + + + +------+ + + + + | Result panel 97 | + + + + + +---------+ + + | | 2022-02-01 | [facility] | 17.88 | (missing) | (missing) | | (unavailable | 17:03 | [facility] | | | | + + + +---------+ + + + + | Result panel 98 | + + + + + +-------+ + + | | 2022-02-01 | [facility] | 139 | (missing) | (missing) | | (unavailable | 17:03 | [facility] | | | | + + + +-------+ + + + + | Result panel 99 | + + + + + +-------+ + + | | 2022-02-01 | [facility] | 4.0 | (missing) | (missing) | | (unavailable | 17:03 | [facility] | | | | + + + +-------+ + + + + | Result panel 100 | + + + + + +-------+ + + | | 2022-02-01 | [facility] | 100 | (missing) | (missing) | | (unavailable | 17:03 | [facility] | | | | + + + +-------+ + + + + | Result panel 101 | + + + + + +------+ + + | | 2022-02-01 | [facility] | 29 | (missing) | (missing) | | (unavailable | 17:03 | [facility] | | | | + + + +------+ + + + + | Result panel 102 | + + + + + +--------+ + + | | 2022-02-01 | [facility] | 14.0 | (missing) | (missing) | | (unavailable | 17:03 | [facility] | | | | + + + +--------+ + + + + | Result panel 103 | + + + + + +-------+---------+ + | | 2022-02-01 | [facility] | 9.3 | mg/dL | (missing) | | (unavailable | 17:03 [facility] | | | | + + + +-------+---------+ + + + | Result panel 104 | + + + + + +-------+---------+ + | | 2022-02-01 | [facility] | 110 | mg/dL | (missing) | | (unavailable | 17:03 | [facility] | | | | + + + +-------+---------+ + + + | Result panel 105 | + + + + + +------+ + + | | 2022-02-01 | [facility] | 47 | (missing) | (missing) | | (unavailable | 17:03 | [facility] | | | | + + + +------+ + + + + | Result panel 106 | + + + + + +---------+ + + | | 2022-02-01 | [facility] | 63.00 | (missing) | (missing) | | (unavailable | 17:03 | [facility] | | | | + + + +---------+ + + + + | Result panel 107 | + + + + + +------+---------+ + | | 2022-02-01 | [facility] | 32 | mg/dL | (missing) | | (unavailable | 17:03 | [facility] | | | | + + + +------+---------+ + + + | Result panel 108 | + + + + + +-------+ + + | | 2022-02-01 | [facility] | 2.3 | (missing) | (missing) | | (unavailable | 17:03 [facility] | | | | + + + +-------+ + + + + | Result panel 109 | + + + + + +------+ + + | | 2022-02-01 | [facility] | 30 | (missing) | (missing) | | (unavailable | 17:03 [facility] | | | | + + + +------+ + + + + | Result panel 110 | + + + + + +-------+ + + | | 2022-02-01 | [facility] | 153 | (missing) | (missing) | | (unavailable | 17:03 | [facility] | | | | + + + +-------+ + + + + | Result panel 111 | + + + + + +-------+ + + | | 2022-02-01 | [facility] | 7.6 | (missing) | (missing) | | (unavailable | 17:03 [facility] | | | | + + + +-------+ + + + + | Result panel 112 | + + + + + +-------+ + + | | 2022-02-01 | [facility] | 3.6 | (missing) | (missing) | | (unavailable | 17:03 | [facility] | | | | + + + +-------+ + + + + | Result panel 113 | + + + + + +-------+ + + | | 2022-02-01 | [facility] | 4.0 | (missing) | (missing) | | (unavailable | 17:03 [facility] | | | | + + + +-------+ + + + + | Result panel 114 | + + + + + +--------+ + + | | 2022-02-01 | [facility] | 0.90 | (missing) | (missing) | | (unavailable | 17:03 [facility] | | | | + + + +--------+ + + + + | Result panel 115 | + + + + + +-------+ + + | | 2022-02-01 | [facility] | 0.5 | (missing) | (missing) | | (unavailable | 17:03 [facility] | | | | + + + +-------+ + + + + | Result panel 116 | + + + + + +------+ + + | | 2022-02-01 | [facility] | 24 | (missing) | (missing) | | (unavailable | 17:03 | [facility] | | | | + + + +------+ + + + + | Result panel 117 | + + + + + +------+ + + | | 2022-02-01 | [facility] | 33 | (missing) | (missing) | | (unavailable | 17:03 | [facility] | | | | + + + +------+ + + + + | Result panel 118 | + + + + + +------+ + + | | 2022-02-01 | [facility] | 96 | (missing) | (missing) | | (unavailable | 17:03 | [facility] | | | | + + + +------+ + + + + | Result panel 119 | + + + + + +-------+ + + | | 2022-02-01 | [facility] | 8.4 | (missing) | (missing) | | (unavailable | 17:03 | [facility] | | | | + + + +-------+ + + + + | Result panel 120 | + + + + + +-------+ + + | | 2022-02-01 | [facility] | 9.0 | (missing) | (missing) | | (unavailable | 17:03 | [facility] | | | | + + + +-------+ + + + + | Result panel 121 | + + + + + +--------+ + + | | 2022-02-01 | [facility] | 4.62 | (missing) | (missing) | | (unavailable | 17:03 | [facility] | | | | + + + +--------+ + + + + | Result panel 122 | + + + + + +--------+ + + | | 2022-02-01 | [facility] | 13.8 | (missing) | (missing) | | (unavailable | 17:03 | [facility] | | | | + + + +--------+ + + + + | Result panel 123 | + + + + + +--------+ + + | | 2022-02-01 | [facility] | 40.9 | (missing) | (missing) | | (unavailable | 17:03 [facility] | | | | + + + +--------+ + + + + | Result panel 124 | + + + + + +--------+ + + | | 2022-02-01 | [facility] | 88.5 | (missing) | (missing) | | (unavailable | 17:03 [facility] | | | | + + + +--------+ + + + + | Result panel 125 | + + + + + +--------+ + + | | 2022-02-01 | [facility] | 30.0 | (missing) | (missing) | | (unavailable | 17:03 [facility] | | | | + + + +--------+ + + + + | Result panel 126 | + + + + + +--------+ + + | | 2022-02-01 | [facility] | 33.9 | (missing) | (missing) | | (unavailable | 17:03 [facility] | | | | + + + +--------+ + + + + | Result panel 127 | + + + + + +--------+ + + | | 2022-02-01 | [facility] | 12.8 | (missing) | (missing) | | (unavailable | 17:03 | [facility] | | | | + + + +--------+ + + + + | Result panel 128 | + + + + + +-------+ + + | | 2022-02-01 | [facility] | 307 | (missing) | (missing) | | (unavailable | 17:03 | [facility] | | | + + + +-------+ + + + + | Result panel 129 | + + + + + +--------+ + + | | 2022-02-01 | [facility] | 71.3 | (missing) | (missing) | | (unavailable | 17:03 | [facility] | | | | + + + +--------+ + + + + | Result panel 130 | + + + + + +--------+ + + | | 2022-02-01 | [facility] | 16.7 | (missing) | (missing) | | (unavailable | 17:03 | [facility] | | | | + + + +--------+ + + + + | Result panel 131 | + + + + + +-------+ + + | | 2022-02-01 | [facility] | 8.5 | (missing) | (missing) | | (unavailable | 17:03 [facility] | | | | + + + +-------+ + + + + | Result panel 132 | + + + + + +-------+ + + | | 2022-02-01 | [facility] | 2.5 | (missing) | (missing) | | (unavailable | 17:03 [facility] | | | | + + + +-------+ + + + + | Result panel 133 | + + + + + +-------+ + + | | 2022-02-01 | [facility] | 1.0 | (missing) | (missing) | | (unavailable | 17:03 | [facility] | | | | + + + +-------+ + + + + | Result panel 134 | + + + + + +-------+---------+ + | | 2022-02-01 | [facility] | 116 | mg/dL | (missing) | | (unavailable | 17:03 | [facility] | | | | + + + +-------+---------+ + + + | Result panel 135 | + + + + + +------+---------+ + | | 2022-02-01 | [facility] | 22 | mg/dL | (missing) | | (unavailable | 17:03 | [facility] | | | | + + + +------+---------+ + + + | Result panel 136 | + + + + + +--------+---------+ + | | 2022-02-01 | [facility] | 1.23 | mg/dL | (missing) | | (unavailable | 17:03 | [facility] | | | | + + + +--------+---------+ + + + | Result panel 137 | + + + + + +------+ + + | | 2022-02-01 | [facility] | 45 | (missing) | (missing) | | (unavailable | 17:03 | [facility] | | | | + + + +------+ + + + + | Result panel 138 | + + + + + +---------+ + + | | 2022-02-01 | [facility] | 17.88 | (missing) | (missing) | | (unavailable | 17:03 [facility] | | | | + + + +---------+ + + + + | Result panel 139 | + + + + + +-------+ + + | | 2022-02-01 | [facility] | 139 | (missing) | (missing) | | (unavailable | 17:03 | [facility] | | | | + + + +-------+ + + + + | Result panel 140 | + + + + + +-------+ + + | | 2022-02-01 | [facility] | 4.0 | (missing) | (missing) | | (unavailable | 17:03 | [facility] | | | | + + + +-------+ + + + + | Result panel 141 | + + + + + +-------+ + + | | 2022-02-01 | [facility] | 100 | (missing) | (missing) | | (unavailable | 17:03 | [facility] | | | | + + + +-------+ + + + + | Result panel 142 | + + + + + +------+ + + | | 2022-02-01 | [facility] | 29 | (missing) | (missing) | | (unavailable | 17:03 | [facility] | | | | + + + +------+ + + + + | Result panel 143 | + + + + + +--------+ + + | | 2022-02-01 | [facility] | 14.0 | (missing) | (missing) | | (unavailable | 17:03 [facility] | | | | + + + +--------+ + + + + | Result panel 144 | + + + + + +-------+---------+ + | | 2022-02-01 | [facility] | 9.3 | mg/dL | (missing) | | (unavailable | 17:03 [facility] | | | | + + + +-------+---------+ + + + | Result panel 145 | + + + + + +-------+ + + | | 2022-02-01 | [facility] | 7.6 | (missing) | (missing) | | (unavailable | 17:03 [facility] | | | | + + + +-------+ + + + + | Result panel 146 | + + + + + + + + + | | 2022-02-01 | [facility] | POSITIVE | (missing) | (missing) | | (unavailable | 17:25 | [facility] | | | | + + + + + + + + + | Result panel 147 | + + + + + + + + + | | 2022-02-01 | [facility] | NEGATIVE | (missing) | (missing) | | (unavailable | 17:25 | [facility] | | | | + + + + + + + + + | Result panel 148 | + + + + + + + + + | | 2022-02-01 | [facility] | NEGATIVE | (missing) | (missing) | | (unavailable | 17:25 | [facility] | | | | + + + + + + + + + | Result panel 149 | + + + + + + + + + | | 2022-02-01 | [facility] | NEGATIVE | (missing) | (missing) | | (unavailable | 17:25 | [facility] | | | | + + + + + + + + + | Result panel 150 | + + + + + + + + + | | 2022-02-01 | [facility] | POSITIVE | (missing) | (missing) | | (unavailable | 17:25 | [facility] | | | | + + + + + + + + + | Result panel 151 | + + + + + + + + + | | 2022-02-01 | [facility] | NEGATIVE | (missing) | (missing) | | (unavailable | 17:25 | [facility] | | | | + + + + + + + + + | Result panel 152 | + + + + + + + + + | | 2022-02-01 | [facility] | NEGATIVE | (missing) | (missing) | | (unavailable | 17:25 | [facility] | | | | + + + + + + + + + | Result panel 153 | + + + + + + + + + | | 2022-02-01 | [facility] | NEGATIVE | (missing) | (missing) | | (unavailable | 17:25 | [facility] | | | | + + + + + + + + + | Result panel 154 | + + + + + +--------+ + + | | 2022-02-01 | [facility] | 13.6 | (missing) | (missing) | | (unavailable | 19:50 | [facility] | | | | + + + +--------+ + + + + | Result panel 155 | + + + + + +--------+ + + | | 2022-02-01 | [facility] | 1.07 | (missing) | (missing) | | (unavailable | 19:50 | [facility] | | | | + + + +--------+ + + + + | Result panel 156 | + + + + + +--------+ + + | | 2022-02-01 | [facility] | 10.9 | (missing) | (missing) | | (unavailable | 19:50 | [facility] | | | | + + + +--------+ + + + + | Result panel 157 | + + + + + +--------+ + + | | 2022-02-01 | [facility] | 13.6 | (missing) | (missing) | | (unavailable | 19:50 | [facility] | | | | + + + +--------+ + + + + | Result panel 158 | + + + + + +--------+ + + | | 2022-02-01 | [facility] | 1.07 | (missing) | (missing) | | (unavailable | 19:50 | [facility] | | | | + + + +--------+ + + + + | Result panel 159 | + + + + + + + + + | | 2022-02-01 | [facility] | YELLOW | (missing) | (missing) | | (unavailable | 21:01 | [facility] | | | | + + + + + + + + + | Result panel 160 | + + + + + +---------+ + + | | 2022-02-01 | [facility] | CLEAR | (missing) | (missing) | | (unavailable | :01 | [facility] | | | | + + + +---------+ + + + + | Result panel 161 | + + + + + + + + + | | 2022-02-01 | [facility] | NEGATIVE | (missing) | (missing) | | (unavailable | 21:01 | [facility] | | | | + + + + + + + + + | Result panel 162 | + + + + + + + + + | | 2022-02-01 | [facility] | NEGATIVE | (missing) | (missing) | | (unavailable | 21:01 | [facility] | | | | + + + + + + + + + | Result panel 163 | + + + + + + + + + | | 2022-02-01 | [facility] | NEGATIVE | (missing) | (missing) | | (unavailable | 21:01 | [facility] | | | | + + + + + + + + + | Result panel 164 | + + + + + +---------+ + + | | 2022-02-01 | [facility] | 1.010 | (missing) | (missing) | | (unavailable | 21:01 | [facility] | | | | + + + +---------+ + + + + | Result panel 165 | + + + + + + + + + | | 2022-02-01 | [facility] | NEGATIVE | (missing) | (missing) | | (unavailable | 21:01 | [facility] | | | | + + + + + + + + + | Result panel 166 | + + + + + +-------+ + + | | 2022-02-01 | [facility] | 7.5 | (missing) | (missing) | | (unavailable | 21:01 | [facility] | | | | + + + +-------+ + + + + | Result panel 167 | + + + + + + + + + | | 2022-02-01 | [facility] | NEGATIVE | (missing) | (missing) | | (unavailable | 21:01 | [facility] | | | | + + + + + + + + + | Result panel 168 | + + + + + + + + + | | 2022-02-01 | [facility] | NORMAL | (missing) | (missing) | | (unavailable | 21:01 | [facility] | | | | + + + + + + + + + | Result panel 169 | + + + + + + + + + | | 2022-02-01 | [facility] | NEGATIVE | (missing) | (missing) | | (unavailable | 21:01 | [facility] | | | | + + + + + + + + + | Result panel 170 | + + + + + + + + + | | 2022-02-01 | [facility] | MODERATE | (missing) | (missing) | | (unavailable | 21:01 | [facility] | | | | + + + + + + + + + | Result panel 171 | + + + + + +-------+ + + | | 2022-02-01 | [facility] | 0-1 | (missing) | (missing) | | (unavailable | 21:01 | [facility] | | | | + + + +-------+ + + + + | Result panel 172 | + + + + + +---------+ + + | | 2022-02-01 | [facility] | 41-50 | (missing) | (missing) | | (unavailable | 21:01 | [facility] | | | | + + + +---------+ + + + + | Result panel 173 | + + + + + + + + + | | 2022-02-01 | [facility] | SQUAMOUS 3+ | (missing) | (missing) | | (unavailable | 21:01 | [facility] | | | | + + + + + + + + + | Result panel 174 | + + + + + + + + + | | 2022-02-01 | [facility] | NONE SEEN | (missing) | (missing) | | (unavailable | 21:01 | [facility] | | | | + + + + + + + + + | Result panel 175 | + + + + + +------+ + + | | 2022-02-01 | [facility] | 2+ | (missing) | (missing) | | (unavailable | : [facility] | | | | + + + +------+ + + + + | Result panel 176 | + + + + + + + + + | | 2022-02-01 | [facility] | NONE SEEN | (missing) | (missing) | | (unavailable | :01 | [facility] | | | | + + + + + + + + + | Result panel 177 | + + + + + +-------+ + + | | 2022-02-01 | [facility] | Yes | (missing) | (missing) | | (unavailable | : [facility] | | | | + + + +-------+ + + + + | Result panel 178 | + + + + + + + + + | | 2022-02-01 | [facility] | CLEAN CATCH | (missing) | (missing) | | (unavailable | 21:01 | [facility] | | | | + + + + + + + + + | Result panel 179 | + + + + + +-------+ + + | | 2022-02-03 | [facility] | 277 | (missing) | (missing) | | (unavailable | 11:56 | [facility] | | | | + + + +-------+ + + Social History No information. Vital Signs + + + +---------+ | date | measurement | value | units | + + + +---------+ | 2021-07-04 00:00 | BMI | 36.7 | kg/m2 | + + + +---------+ | 2021-07-04 00:00 | BP_diastolic | 84 | mmHg | + + + +---------+ | 2021-07-04 00:00 | BP_systolic | 169 | mmHg | + + + +---------+ | 2021-07-04 00:00 | heart_rate | 75 | /min | + + + +---------+ | 2021-07-04 00:00 | height_metric | 162.56 | cm | + + + +---------+ | 2021-07-04 00:00 | height_standard | 64 | in | + + + +---------+ | 2021-07-04 00:00 | o2_saturation | 98 | % | + + + +---------+ | 2021-07-04 00:00 | respiration_rate | 16 | /min | + + + +---------+ | 2021-07-04 00:00 | temperature_metric | 36.39 | C | | | | | | + + + +---------+ | 2021-07-04 00:00 | | 97.5 | F | | | temperature_standar | | | | | d | | | + + + +---------+ | 2021-07-04 00:00 | weight_metric | 97.07 | kg | + + + +---------+ | 2021-07-04 00:00 | weight_standard | 214 | lb | + + + +---------+ | 2021-08-05 00:00 | BMI | 32.6 | kg/m2 | + + + +---------+ | 2021-08-05 00:00 | BP_diastolic | 74 | mmHg | + + + +---------+ | 2021-08-05 00:00 | BP_systolic | 149 | mmHg | + + + +---------+ | 2021-08-05 00:00 | heart_rate | 66 | /min | + + + +---------+ | 2021-08-05 00:00 | height_metric | 162.56 | cm | + + + +---------+ | 2021-08-05 00:00 | height_standard | 64 | in | + + + +---------+ | 2021-08-05 00:00 | o2_saturation | 98 | % | + + + +---------+ | 2021-08-05 00:00 | respiration_rate | 18 | /min | + + + +---------+ | 2021-08-05 00:00 | temperature_metric | 36.83 | C | | | | | | + + + +---------+ | 2021-08-05 00:00 | | 98.3 | F | | | temperature_standar | | | | | d | | | + + + +---------+ | 2021-08-05 00:00 | weight_metric | 86.18 | kg | + + + +---------+ | 2021-08-05 00:00 | weight_standard | 189.99 | lb | + + + +---------+ | 2021-08-05 00:00 | weight_standard | 190 | lb | + + + +---------+ | 2021-11-13 00:00 | BMI | 31.4 | kg/m2 | + + + +---------+ | 2021-11-13 00:00 | height_metric | 162.56 | cm | + + + +---------+ | 2021-11-13 00:00 | height_standard | 64 | in | + + + +---------+ | 2021-11-13 00:00 | weight_metric | 83.1 | kg | + + + +---------+ | 2021-11-13 00:00 | weight_standard | 183.2 | lb | + + + +---------+ | 2021-11-15 00:00 | BP_diastolic | 49 | mmHg | + + + +---------+ | 2021-11-15 00:00 | BP_systolic | 136 | mmHg | + + + +---------+ | 2021-11-15 00:00 | heart_rate | 72 | /min | + + + +---------+ | 2021-11-15 00:00 | o2_saturation | 100 | % | + + + +---------+ | 2021-11-15 00:00 | respiration_rate | 16 | /min | + + + +---------+ | 2021-11-15 00:00 | temperature_metric | 36.33 | C | | | | | | + + + +---------+ | 2021-11-15 00:00 | | 97.4 | F | | | temperature_standar | | | | | d | | | + + + +---------+ | 2022-02-01 00:00 | BMI | 31.1 | kg/m2 | + + + +---------+ | 2022-02-01 00:00 | BMI | 31.4 | kg/m2 | + + + +---------+ | 2022-02-01 00:00 | BP_diastolic | 57 | mmHg | + + + +---------+ | 2022-02-01 00:00 | BP_diastolic | 62 | mmHg | + + + +---------+ | 2022-02-01 00:00 | BP_systolic | 127 | mmHg | + + + +---------+ | 2022-02-01 00:00 | BP_systolic | 166 | mmHg | + + + +---------+ | 2022-02-01 00:00 | heart_rate | 58 | /min | + + + +---------+ | 2022-02-01 00:00 | height_metric | 162.56 | cm | + + + +---------+ | 2022-02-01 00:00 | height_standard | 64 | in | + + + +---------+ | 2022-02-01 00:00 | o2_saturation | 100 | % | + + + +---------+ | 2022-02-01 00:00 | respiration_rate | 20 | /min | + + + +---------+ | 2022-02-01 00:00 | temperature_metric | 36.67 | C | | | | | | + + + +---------+ | 2022-02-01 00:00 | | 98 | F | | | temperature_standar | | | | | d | | | + + + +---------+ | 2022-02-01 00:00 | weight_metric | 82.2 | kg | + + + +---------+ | 2022-02-01 00:00 | weight_metric | 83.01 | kg | + + + +---------+ | 2022-02-01 00:00 | weight_standard | 181.22 | lb | + + + +---------+ | 2022-02-01 00:00 | weight_standard | 183 | lb | + + + +---------+ | 2022-02-01 00:00 | weight_standard | 183.01 | lb | + + + +---------+ | 2022-02-03 00:00 | BP_diastolic | 55 | mmHg | + + + +---------+ | 2022-02-03 00:00 | BP_systolic | 142 | mmHg | + + + +---------+ | 2022-02-03 00:00 | heart_rate | 64 | /min | + + + +---------+ | 2022-02-03 00:00 | o2_saturation | 100 | % | + + + +---------+ | 2022-02-03 00:00 | respiration_rate | 18 | /min | + + + +---------+ | 2022-02-03 00:00 | temperature_metric | 36.44 | C | | | | | | + + + +---------+ | 2022-02-03 00:00 | | 97.6 | F | | | temperature_standar | | | | | d | | | + + + +---------+"
--- OUTSIDE RECORDS SUMMARY | ~2022-10-13 | XMS | Continuity of Care Document ---
Demographics + + + | Address | [address] | | | [place] [address] | + + + | Preferred Language | Unknown | + + + | Marital Status | | + + + | Protestant Affiliation | Unknown | + + + | Race | White | + + + | Ethnic Group | Not or | + + + Author + + + | Author | [facility] | + + + | Organization | [facility] | + + + | Address | [address] | | | [place], [place] [address] | + + + | Phone | | + + + Care Team Providers + + + + | Care Rpg Programmer Analyst Name | Role | Phone | + [...] + | 2021-11-22 00:00 | NIACIN | [facility] | + + + + | 2022-02-01 00:00 | NIACIN | [facility] | + + + + | 2022-02-03 00:00 | NIACIN | [facility] | + + + + | 2021-11-22 00:00 | Turmeric Root Extract | [facility] | + + + + | 2022-02-01 00:00 | Turmeric Root Extract | [facility] | + + + + | 2022-02-03 00:00 | Turmeric Root Extract | [facility] | + + + + | 2021-11-22 00:00 | POTASSIUM GLUCONATE | [facility] | + + + + | 2022-02-01 00:00 | POTASSIUM GLUCONATE | [facility] | + + + + | 2022-02-03 00:00 | POTASSIUM GLUCONATE | [facility] | + + + + | 2021-11-22 00:00 | CHROMIUM PICOLINATE | [facility] | + + + + | 2022-02-01 00:00 | CHROMIUM PICOLINATE | [facility] | + + + + | 2022-02-03 00:00 | CHROMIUM PICOLINATE | [facility] | + + + + | 2021-11-22 00:00 | MELATONIN | [facility] | + + + + | 2022-02-01 00:00 | MELATONIN | [facility] | + + + + | 2022-02-03 00:00 | MELATONIN | [facility] | + + + + | 2021-11-22 00:00 | INSULIN LISPRO | [facility] | + + + + | 2022-02-01 00:00 | INSULIN LISPRO | [facility] | + + + + | 2022-02-03 00:00 | INSULIN LISPRO | [facility] | + + + + | 2021-11-22 00:00 | SIMVASTATIN | [facility] | + + + + | 2022-02-01 00:00 | SIMVASTATIN | [facility] | + + + + | 2022-02-03 00:00 | SIMVASTATIN | [facility] | + + + + | 2021-11-22 00:00 | ASPIRIN | [facility] | + + + + | 2022-02-01 00:00 | ASPIRIN | [facility] | + + + + | 2022-02-03 00:00 | ASPIRIN | [facility] | + + + + | 2021-11-22 00:00 | Cholecalciferol (Vitamin | [facility] | | | D3) | | + + + + | 2022-02-01 00:00 | Cholecalciferol (Vitamin | [facility] | | | D3) | | + + + + | 2022-02-03 00:00 | Cholecalciferol (Vitamin | [facility] | | | D3) | | + + + + | 2022-02-03 00:00 | MAGNESIUM OXIDE | [facility] | + + + + | 2020-12-27 00:00 | CLOPIDOGREL BISULFATE | [facility] | + + + + | 2022-02-01 00:00 | CLOPIDOGREL BISULFATE | [facility] | + + + + | 2022-02-03 00:00 | CLOPIDOGREL BISULFATE | [facility] | + + + + | 2022-02-03 00:00 | Insulin Regular, Human | [facility] | + + + + | 2022-02-03 00:00 | PIOGLITAZONE HCL | [facility] | + + + + | 2021-11-22 00:00 | ASCORBIC ACID | [facility] | + + + + | 2022-02-01 00:00 | ASCORBIC ACID | [facility] | + + + + | 2022-02-03 00:00 | ASCORBIC ACID | [facility] | + + + + | 2022-02-03 00:00 | ASPIRIN | [facility] | + + + + | 2020-07-18 00:00 | CLOPIDOGREL BISULFATE | [facility] | + + + + | 2021-11-15 00:00 | CLOPIDOGREL BISULFATE | [facility] | + + + + | 2021-11-22 00:00 | CYANOCOBALAMIN (VITAMIN | [facility] | | | B-12) | | + + + + | 2022-02-01 00:00 | CYANOCOBALAMIN (VITAMIN | [facility] | | | B-12) | | + + + + | 2022-02-03 00:00 | CYANOCOBALAMIN (VITAMIN | [facility] | | | B-12) | | + + + + | 2021-11-22 00:00 | NPH, HUMAN INSULIN | [facility] | | | ISOPHANE | | + + + + | 2022-02-01 00:00 | NPH, HUMAN INSULIN | [facility] | | | ISOPHANE | | + + + + | 2022-02-03 00:00 | NPH, HUMAN INSULIN | [facility] | | | ISOPHANE | | + + + + | 2021-11-22 00:00 | ESCITALOPRAM OXALATE | [facility] | + + + + | 2022-02-01 00:00 | ESCITALOPRAM OXALATE | [facility] | + + + + | 2022-02-03 00:00 | ESCITALOPRAM OXALATE | [facility] | + + + + | 2021-11-22 00:00 | SITAGLIPTIN PHOSPHATE | [facility] | + + + + | 2022-02-01 00:00 | SITAGLIPTIN PHOSPHATE | [facility] | + + + + | 2022-02-03 00:00 | SITAGLIPTIN PHOSPHATE | [facility] | + + + + | 2021-11-15 00:00 | ASPIRIN | [facility] | + + + + | 2021-11-22 00:00 | INSULIN | [facility] | | | GLARGINE,[facility].REC.ANLOG | | + + + + | 2022-02-01 00:00 | INSULIN | [facility] | | | GLARGINE,HUM.REC.ANLOG | | + + + + | 2022-02-03 00:00 | INSULIN | [facility] | | | GLARGINE,HUM.REC.ANLOG | | + + + + | 2021-11-22 00:00 | METFORMIN HCL | [facility] | + + + + | 2022-02-01 00:00 | METFORMIN HCL | [facility] | + + + + | 2022-02-03 00:00 | METFORMIN HCL | [facility] | + + + + | 2021-11-22 00:00 | LEVOTHYROXINE SODIUM | [facility] | + + + + | 2022-02-01 00:00 | LEVOTHYROXINE SODIUM | [facility] | + + + + | 2022-02-03 00:00 | LEVOTHYROXINE SODIUM | [facility] | + + + + | 2021-11-22 00:00 | | [facility] | | | Losartan/Hydrochlorothiazid | | | | e | | + + + + | 2022-02-01 00:00 | | [facility] | | | Losartan/Hydrochlorothiazid | | | | e | | + + + + | 2022-02-03 00:00 | | [facility] | | | Losartan/Hydrochlorothiazid | | | | e | | + + + + Problems + + + + | date | description | facility | + + + + | 2014-07-29 00:00 | Non-cardiac chest pain | [facility] | + + + + | 2016-08-30 00:00 | Encounter for medical | [facility] | | | screening examination | | + + + + | 2017-04-06 00:00 | Cough due to bronchospasm | [facility] | + + + + | 2017-04-06 00:00 | Acute urinary tract | [facility] | | | infection | | + + + + | 2017-04-06 00:00 | Fever | [facility] | + + + + | 2017-04-06 00:00 | Weakness | [facility] | + + + + | 2019-12-30 00:00 | Transient ischemic attack | [facility] | + + + + | 2020-12-28 00:00 | History of transient | [facility] | | | ischemic attack | | + + + + | 2021-07-04 00:00 | Hypoglycemia | [facility] | + + + + | 2021-08-05 00:00 | Urinary tract infection | [facility] | + + + + | 2021-08-05 [...] + + + | 2021-08-05 19:57 | alf (current) use of | [facility] | | | aspirin | [employer] | + + + + | 2021-08-05 19:57 | alf (current) use of | [facility] | | | oral hypoglycemic drugs | [employer] | + + + + | 2021-08-05 19:57 | Other residential (current) | [facility] | | | [...] | 2021-11-13 00:00 | Cerebrovascular accident | [facility] | | | (CVA) | | + [...] (missing) | | (unavailable | 17:03 | [facility] | | | | | ) | [...]
[2022-10-14] MEDS ORDERED: FEOSOL325 MG PO (01:24)
[2022-10-14 01:43] VITALS: BP 148/69
--- NOTE | 2022-10-15 06:07 | EKG ---
[facility] [address] [place] [address] Signed Normal sinus rhythm with sinus arrhythmia Right bundle branch block Abnormal ECG When compared with ECG of 01-FEB-2022 19:40, QRS axis shifted right Nonspecific T wave abnormality, worse in Anterior leads prolonged QTc Confirmed by CARLEEN REECE MD ([id number]) on 10/15/2022 6:07:06 AM Electronically Signed By: CARLEEN REECE 10/15/22 [id number] PATIENT NAME: HOLLAND EDWARDS Electrocardiogram DATE OF : 43 PHYSICIAN: CARLEEN REECE REPORT #: [id number] REPORT IS CONFIDENTIAL AND NOT TO BE RELEASED WITHOUT AUTHORIZATION
== END 2022-10-14 01:43 | disposition home or self-care (01) ==
LOC: ED 18:58
DX: D50.9 Iron deficiency anemia, unspecified (principal); E11.9 Type 2 diabetes mellitus without complications; I11.0 Hypertensive heart disease with heart failure; I50.9 Heart failure, unspecified; E03.9 Hypothyroidism, unspecified; Z79.82 Long term (current) use of aspirin; Z86.73 Personal history of transient ischemic attack (TIA), and cerebral infarction without residual deficits; Z87.891 Personal history of nicotine dependence; Z88.7 Allergy status to serum and vaccine; Z79.4 Long term (current) use of insulin; Z79.899 Other long term (current) drug therapy; Z79.890 Hormone replacement therapy; Z79.84 Long term (current) use of oral hypoglycemic drugs
CPT/HCPCS: 36415; 71045; 80053; 81003; 83735; 83880; 84484; 85014; 85018; 85025; 85060; 86850; 86900; 86901; 86922; 93005; 93010; J1940; P9016